=== PATIENT | female | born 1990 | race Caucasian/White ===

== ENCOUNTER 2016-04-10 09:42 | Inpatient (IN) | payer BC ==
[2016-04-10] MEDS ORDERED: OXYTOCIN 10 UNIT/ML 1 ML VIAL IM PRN (10:18)
[2016-04-10] MEDS ORDERED: TERBUTALINE 1 MG/ML VIAL SQ PRN (10:18)
[2016-04-10] MEDS ORDERED: METHYLERGONOVINE 0.2 MG/ML 1 ML AMP IM PRN (10:18)
[2016-04-10] MEDS ORDERED: LIDOCAINE 1% (PF) 10 MG/ML (30 ML SDV) SQ PRN (10:18)
[2016-04-10] MEDS ORDERED: CARBOPROST TROMETHAMINE 250 MCG/ML 1 ML AMP IM PRN (10:18)
[2016-04-10 10:24] LABS: Glucose,Whole Blood 81 mg/dL (75-99)
[2016-04-10] MEDS ORDERED: OXYTOCIN 30 UNITS/500 ML NS 30 UNIT in SALINE 1 500ML.BAG IV SCH (10:30)
[2016-04-10] MEDS: LACTATED RINGERS 1,000 ML IV SCH ×4 (10:39→23:34)
[2016-04-10 10:46] LABS: Anisocytosis Slight; Basophils % (A) 0 %; CH 29.4; CHCM 33.1; Eosinophils # (A) 0.1 k/uL (0-0.7); Eosinophils % (A) 1 %; HCT 40.7 % (34.0-46.0); HDW 2.39; HGB 13.2 gm/dL (11.4-16.0); Luc # (Auto) 0.25; Luc % (Auto) 2; Lymphocytes # (A) 2.1 k/uL (1.0-4.8); Lymphocytes % (A) 13 %; MCH 28.9 pg (25.0-35.0); MCHC 32.4 g/dL (31.0-37.0); MCV 89.3 fL (80.0-100.0); Mean Platelet Volume 7.7; Monocytes # (A) 0.7 k/uL (0-1.0); Monocytes % (A) 4 %; Neutrophils # (A) 13.6 k/uL (1.3-7.7); Neutrophils % (A) 81 %; RBC 4.56 m/uL (3.80-5.40); RDW 16.2 % (11.5-15.5); WBC 16.8 k/uL (3.8-10.6); WBC (Perox) 17.63
[2016-04-10 11:23] VITALS: BMI 38.3
[2016-04-10 12:26] LABS: Hemoglobin A1C 5.4 % (4.2-6.1)
[2016-04-10] MEDS ORDERED: BUPIVACAINE (PF) 0.25% 30 ML VIAL ONE (15:11)
[2016-04-10] MEDS ORDERED: SODIUM CHLORIDE 0.9% 100 ML BAG ONE (15:11)
[2016-04-10] MEDS ORDERED: fentaNYL (PF) 50 MCG/ML 5 ML AMP ONE (15:11)
--- NOTE | 2016-04-10 16:15 | P.HPOB ---
History of Present Illness H&P Date: 04/10/16 Chief Complaint: 40 and one sevenths weeks, gestational diabetes, oligohydramnios The patient is a 25-year-old 1 para 0 admitted at 40 and one sevenths weeks as established by a 6 week ultrasound. She is admitted from the office after having been found with oligohydramnios and an amniotic fluid index of 4.8 cm. She additionally carries a diagnosis of gestational diabetes with some good control using diet alone throughout the . testing has been reassuring throughout. Her has otherwise been essentially uncomplicated and group B strep status is negative. On labor and delivery, all signs reassuring. Obstetrical history 1 para 0 with current statistics listed in history of present illness. EDC of 04/09/2016 was established by a 6 week ultrasound. Laboratory workup demonstrates a blood type of O+ with a negative antibody screen. Rubella status is immune. All other laboratory workup was within normal limits. Thyroid functions demonstrated an abnormal TSH but a normal T4. Early Glucola was elevated and was followed by an abnormal three- hour glucose tolerance test making the diagnosis of gestational diabetes. Group B strep status is negative. Gynecologic history is unremarkable with no history of any infections to include STDs. Review of Systems Review of systems is confined to history of present illness. Past Medical History Past Medical History: Thyroid Disorder Additional Past Medical History / Comment(s): gestational diabetes History of Any Multi-Drug Resistant Organisms: None Reported Past Surgical History: No Surgical Hx Reported Additional Past Anesthesia/Blood Transfusion Reaction / Comment(s): Denies recieving a blood transfusion in the past Past Psychological History: No Psychological Hx Reported Smoking Status: Never smoker Past Alcohol Use History: None Reported Past Drug Use History: None Reported - Past Family History Mother Family Medical History: Thyroid Disorder Medications and Allergies Home Medications Medication Instructions Recorded Confirmed Type Levothyroxine Sodium [Synthroid] 175 mcg PO DAILY 09/25/15 04/10/16 History Allergies Allergy/AdvReac Type Severity Reaction Status Date / Time ibuprofen Allergy Unknown Verified 04/10/16 10:16 latex Allergy Unknown Verified 04/10/16 10:16 Penicillins Allergy Unknown Verified 04/10/16 10:16 Exam - Vital Signs Vital signs: Vital Signs Temp Pulse Resp BP 04/10/16 09:49 97.2 F L 98 17 137/88 Intake and Output 04/10/16 04/10/1604/10/17 06:59 14:59 22:59 Intake Total 1000 Balance 1000 Intake: IV 1000 Lactated Ringers 1,000 ml 1000 @ 125 mls/hr IV .Q8H [facility] Rx#:[id number] Other: # Voids 2 Weight 111.13 kg Patient Weight 04/11/16 06:59 Weight 111.13 kg In general, this is a well-developed, well-nourished white female in no acute distress. Her heart has a regular rhythm and rate without murmur. Her lungs are clear to auscultation bilaterally in all [place]. Her abdomen is gravid, nondistended, has normal active bowel sounds, is soft, nontender, and without any palpable masses aside from uterine fundus. Her extremities are without any cyanosis, clubbing, or significant edema and are nontender to palpation bilaterally. Digital cervical examination on straights her cervix to be approximately 1-2 cm dilated, 80% effaced, the vertex in presentation at -2 station. Artificial rupture of membranes is carried out demonstrate clear fluid. Results Result Diagrams: 04/10/16 10:25 Abnormal Lab Results - Last 24 Hours (Table) 04/10/16 Range/Units 10:25 WBC 16.8 H (3.8-10.6) k/uL RDW 16.2 H (11.5-15.5) % Neutrophils # 13.6 H (1.3-7.7) k/uL Assessment and Plan (1) Oligohydramnios Status: Acute (2) Gestational diabetes Status: Acute (3) Term Status: Acute Plan: The patient is admitted for induction of labor. She has had Pitocin augmentation started and undergone artificial rupture of membranes breech she will have close maternal and surveillance and expectant management will be practiced. She is a good candidate for either IV or epidural analgesia, whichever she may choose. Blood sugars will be monitored during labor as indicated.
[2016-04-10 16:16] LABS: Glucose,Whole Blood 84 mg/dL (75-99)
[2016-04-10 18:20] LABS: Glucose,Whole Blood 75 mg/dL (75-99)
[2016-04-10] MEDS ORDERED: NALOXONE 0.4 MG/ML 1 ML VIAL IV PRN ×2 (18:31→22:19)
[2016-04-10] MEDS ORDERED: METOCLOPRAMIDE 5 MG/ML 2 ML VIAL IVP PRN ×2 (18:31→22:15)
[2016-04-10] MEDS ORDERED: PROMETHAZINE INJ 6.25 MG in SODIUM CHLORIDE 0.9% 50 ML IVPB PRN (18:31)
[2016-04-10] MEDS ORDERED: ONDANSETRON 4 MG/2 ML VIAL IVP PRN (18:31)
[2016-04-10] MEDS ORDERED: diphenhydrAMINE 50 MG/ML 1 ML VIAL IVP PRN ×3 (18:31→22:15)
[2016-04-10] MEDS ORDERED: MORPHINE SULFATE 4 MG/ML SYRINGE IVP PRN (18:31)
[2016-04-10] MEDS ORDERED: NALBUPHINE 10 MG/ML AMPUL IV PRN (18:31)
[2016-04-10 21:19] LABS: Glucose,Whole Blood 96 mg/dL (75-99)
[2016-04-10] MEDS ORDERED: OXYTOCIN 10 UNIT/ML 1 ML VIAL IM ONE (21:22)
[2016-04-10] MEDS ORDERED: ONDANSETRON 4 MG/2 ML VIAL ONE (21:22)
[2016-04-10] MEDS ORDERED: LACTATED RINGERS 1,000 ML BAG IV ONE (21:22)
[2016-04-10] MEDS ORDERED: CLINDAMYCIN 150 MG/ML 4 ML VIAL ONE (21:22)
[2016-04-10] MEDS ORDERED: HYDROmorphone (PF) 1 MG/ML ONE (21:22)
[2016-04-10] MEDS ORDERED: fentaNYL (PF) 50 MCG/ML 2 ML AMP ONE (21:22)
[2016-04-10] MEDS ORDERED: diphenhydrAMINE 25 MG CAP PO PRN (22:15)
[2016-04-10] MEDS ORDERED: Acetaminophen-Codeine 300-30mg TAB PO PRN (22:15)
[2016-04-10] MEDS ORDERED: diphenhydrAMINE 50 MG CAP PO PRN (22:15)
[2016-04-10] MEDS ORDERED: ACETAMINOPHEN TAB 325 MG TAB PO PRN (22:15)
[2016-04-10] MEDS ORDERED: ZOLPIDEM 5 MG TAB PO PRN (22:15)
[2016-04-10] MEDS ORDERED: SIMETHICONE 80 MG CHEWABLE PO PRN (22:15)
[2016-04-10] MEDS ORDERED: LANOLIN CREAM 5 GM TUBE TOPICAL PRN (22:15)
[2016-04-10] MEDS ORDERED: HYDROmorphone PCA 5 MG/25 ML SYRINGE IV PRN (22:19)
[2016-04-10] MEDS ORDERED: DIPH,PERTUS(ACELL)TETVAC-LF 0.5 ML VIAL IM ONE (22:20)
--- NOTE | 2016-04-10 22:29 | P.OP ---
Date of Procedure: 04/10/16 Preoperative Diagnosis: #1. 40 and one sevenths weeks intrauterine #2. Gestational diabetes #3. Oligohydramnios #4. Arrest of descent in the second stage of labor Postoperative Diagnosis: Same plus #5. left occiput posterior position Procedure(s) Performed: #1. Primary low-transverse section Anesthesia: epidural Surgeon: Fernando Foster Hydraulic Lift Operator #1: Russell Mccarthy Estimated Blood Loss (ml): 600 IV fluids (ml): 950 Urine output (ml): 100 Pathology: other (Placenta) Condition: stable Disposition: floor Operative Findings: Preoperatively, the patient reached complete and began pushing for approximately 30-40 minutes with excellent maternal effort. The head was felt to have arrested behind the pubic symphysis and the pelvic architecture was felt to be somewhat contracted with a very narrow pubic arch. The patient was having significant discomfort and making no further descent of the head. The decision was made to present to the operating room for primary low- transverse section. At that time, she was delivered of a viable 8 lbs. 11 oz. baby boy with Apgars of 8 at 1 minute and 8 at 5 minutes delivered in the left occiput posterior position. Thick meconium-stained fluid was noted upon entering the uterine cavity. The infant was immediately vigorous. The placenta was delivered manually, intact, and grossly normal with a grossly normal three-vessel cord. The uterus, tubes, and ovaries were entirely normal to inspection. Description of Procedure: The patient was prepped and draped after the epidural catheter had been bolused by the anesthesiologist. Once analgesia was found to be adequate, a Pfannenstiel incision was made and extended into the abdominal cavity without difficulty. The bladder peritoneum was thought to be very distal to the site of the incision and was left intact. A 2 cm incision was made in the lower transverse uterine section at which time thick meconium-stained fluid was noted. The incision was extended in both directions using the bandage scissors. The head was found a deep within the maternal pelvis and was elevated up into the uterus and delivered in left occiput posterior position. The nose and mouth were thoroughly suctioned with bulb suction. The remainder of the infant was then delivered onto the field where the cord was doubly clamped, cut, and the passed for resuscitative measures with weight and Apgars as noted above. A segment of cord was doubly clamped, cut, and set aside should cord gases become necessary. The placenta was delivered manually and intact as noted above. The uterus was exteriorized and the interior cavity of the uterus swept of any remaining placental or membranous fragments. The margins of the incision were grasped with Díaz clamps and the uterus closed in 2 layers. The first layer was a running locking stitch of 0 chromic catgut followed by a running imbricating layer of 0 chromic catgut with several of the stitches locked to occlude venous spaces. Examination of the incision appeared to demonstrate excellent hemostasis. The posterior cul-de-sac was then suctioned using a guard and the uterine and ovarian findings were normal as noted above. The uterus was replaced within the abdominal cavity and the gutters swept of any remaining blood, fluid, or clot. The incision was reexamined and found to be hemostatic. The parietal peritoneum was loosely reapproximated and, as there was some pushing of abdominal contents through the incision unintentionally by the patient, the rectus muscles were loosely reapproximated with a [id number] stitch of 0 chromic catgut. The layer of muscles examined and made hemostatic with the Bovie. The fascia was then closed with 2 running stitches of 0 Vicryl proceeding from each margin to the midline. The subcutaneous tissues were irrigated, made hemostatic with the Bovie, and reapproximated with a running stitch of 3-0 plain catgut. The skin was reapproximated with a running subcuticular stitch of 4-0 Vicryl followed by half-inch Steri-Strips placed with Mastisol. Estimated blood loss for the case was approximate 600 mL. There were no complications. All sponge, instrument, and needle counts were correct. Both mother and infant are resting comfortably in recovery.
[2016-04-10] MEDS: KETOROLAC 30 MG/ML 1 ML VIAL IVP PRN (23:34)
[2016-04-11] MEDS: OXYTOCIN 30 UNITS/500 ML NS 30 UNIT in SALINE 1 500ML.BAG IV SCH ×3 (00:49→07:18)
[2016-04-11] MEDS: KETOROLAC 30 MG/ML 1 ML VIAL IVP PRN (05:48)
[2016-04-11] MEDS: SENNOSIDES-DOCUSATE SODIUM 1 EACH TAB PO SCH ×2 (07:55→21:36)
[2016-04-11 08:06] LABS: Anisocytosis Slight; Basophils % (A) 0 %; CH 29.6; CHCM 32.9; Eosinophils % (A) 0 %; HCT 33.4 % (34.0-46.0); HDW 2.41; HGB 10.5 gm/dL (11.4-16.0); Luc # (Auto) 0.15; Luc % (Auto) 1; Lymphocytes # (A) 1.2 k/uL (1.0-4.8); Lymphocytes % (A) 7 %; MCH 28.7 pg (25.0-35.0); MCHC 31.6 g/dL (31.0-37.0); MCV 90.7 fL (80.0-100.0); Mean Platelet Volume 7.9; Monocytes # (A) 0.8 k/uL (0-1.0); Monocytes % (A) 5 %; Neutrophils # (A) 14.5 k/uL (1.3-7.7); Neutrophils % (A) 87 %; RBC 3.68 m/uL (3.80-5.40); RDW 16.5 % (11.5-15.5); WBC 16.6 k/uL (3.8-10.6); WBC (Perox) 17.47
--- NOTE | 2016-04-11 10:02 | P.PNOBGPC ---
Subjective - Subjective Interval history: The patient reports "I feel sore." Patient reports: Reports appetite normal, Reports voiding normally, Reports pain well controlled, Reports ambulating normally [place]: doing well Objective - Vital Signs Latest vital signs: Vital Signs Temp Pulse Resp BP BP Pulse Ox 04/11/16 07:51 98.6 F 95 16 97/57 04/11/16 04:00 98.8 F 92 16 125/57 96 04/11/16 00:13 96.7 F L 88 16 106/60 96 04/10/16 23:43 96.7 F L 108 H 16 115/69 96 04/10/16 23:13 96.8 F L 103 H 16 106/56 99 04/10/16 22:58 77 16 106/56 98 04/10/16 22:43 97.9 F 79 16 117/69 96 04/10/16 22:28 84 16 111/64 96 04/10/16 22:19 96 04/10/16 22:13 97.7 F 109 H 18 120/70 Intake and Output 04/10/16 04/11/16 04/11/16 22:59 06:59 14:59 Intake Total 1050 1550 Output Total 500 900 Balance 550 650 Intake: IV 1000 950 Invasive Line 1 1000 Lactated Ringers 1,000 ml 950 @ 125 mls/hr IV .Q8H [facility] Rx#:[id number] Oral 50 600 Output: Urine 500 300 Straight 500 100 Estimated Blood Loss 600 Other: Voiding Method Indwelling Catheter Indwelling Catheter - Exam Lungs: bilateral: normal Chest: Normal S1, Normal S2 Extremities: Present: normal Abdomen: Present: normal appearance, soft. Absent: distention, tenderness Incision: Present: normal, dry, intact Uterus: Present: normal, firm (The uterine fundus as tonic and nontender just below the umbilicus.) - Labs Labs: Abnormal Lab Results - Last 24 Hours (Table) 04/10/16 04/11/16 Range/Units 10:25 07:40 WBC 16.8 H 16.6 H (3.8-10.6) k/uL RBC 3.68 L (3.80-5.40) m/uL Hgb 10.5 L (11.4-16.0) gm/dL Hct 33.4 L (34.0-46.0) % RDW 16.2 H 16.5 H (11.5-15.5) % Neutrophils # 13.6 H 14.5 H (1.3-7.7) k/uL Assessment and Plan (1) Oligohydramnios Current Visit: Yes Status: Acute Code(s): O41.00X0 - OLIGOHYDRAMNIOS, UNSP TRIMESTER, NOT APPLICABLE OR UNSP SNOMED Code(s): 73754437 (2) Gestational diabetes Current Visit: Yes Status: Acute Code(s): O24.419 - GESTATIONAL DIABETES MELLITUS IN , UNSP CONTROL SNOMED Code(s): 16037662 (3) Term Current Visit: Yes Status: Acute Code(s): Z34.80 - ENCOUNTER FOR SUPRVSN OF NORMAL , UNSP TRIMESTER SNOMED Code(s): 89954677 (4) S/P section Narrative/Plan: Continue routine postoperative care. The ACCOUNTANT CERTIFIED PUBLIC will be discontinued and her IV will be capped. I have encouraged her to ambulate in the halls at least 4 times daily. I will be advanced to regular with lunch. She is possible candidate for discharge home tomorrow pending no complications. Current Visit: Yes Status: Acute Code(s): Z98.891 - HISTORY OF UTERINE SCAR FROM PREVIOUS SURGERY SNOMED Code(s): 174040597
[2016-04-11] MEDS: Acetaminophen-Codeine 300-30mg TAB PO PRN ×3 (12:06→21:35)
--- NOTE | 2016-04-12 07:46 | P.DS ---
Providers Date of admission: 04/10/16 09:42 Expected date of discharge: 04/12/16 Attending physician: Fernando Foster - Discharge Diagnosis(es) (1) Arrest of descent, delivered, current hospitalization Current Visit: Yes Status: Acute (2) malposition, delivered, current hospitalization Current Visit: Yes Status: Acute (3) Gestational diabetes Current Visit: Yes Status: Acute (4) Oligohydramnios Current Visit: Yes Status: Acute (5) S/P section Current Visit: Yes Status: Acute (6) Term Current Visit: Yes Status: Acute Hospital Course: This is a 25 year old 1 now para 1 woman who was admitted at 40 and one sevenths weeks gestation to labor and delivery for induction of labor secondary to gestational diabetes and oligohydramnios. Despite induction of labor she had arrest of descent and dilatation and underwent a primary low transverse section. Findings at the time of surgery were significant for occiput posterior position and weighing 8 lbs. 11 oz. with Apgars of 8 at 1 minute and 8 at 5 minutes. There was meconium-stained fluid. Please see the operative report for complete details. The patient's postoperative course was unremarkable. By postoperative day #1 she was ambulating and voiding with her Winston catheter out. She was tolerating a general diet and her pain was well controlled. By postoperative day #2 she continued to do well. Her vital signs were stable. Her incision appeared to be well healing without evidence of erythema or breakdown. She had minimal lochia. She is breast-feeding successfully. She was therefore discharged home on postoperative day #2 with routine instructions for postoperative care and follow-up. Patient Condition at Discharge: Good Plan - Discharge Summary New Discharge Prescriptions: Acetaminophen-Codeine 300-30mg [Tylenol w/codeine #3] 2 each PO Q4HR PRN #30 tab PRN Reason: Moderate To Severe Pain Discharge Medication List Levothyroxine Sodium [Synthroid] 175 mcg PO DAILY 09/25/15 [History] Acetaminophen-Codeine 300-30mg [Tylenol w/codeine #3] 2 each PO Q4HR PRN #30 tab 04/12/16 [Rx] Follow up Appointment(s)/Referral(s): Nupur Doty MD [STAFF PHYSICIAN] - 2 Weeks Activity/Diet/Wound Care/Special Instructions: Follow-up in 2 weeks after surgery in the office. Call the office with any concerning signs or symptoms including fever greater than 101, severe abdominal pain, heavy vaginal bleeding, signs of wound infection, increased swelling or redness of the lower extremities, signs of depression. No driving for 2 weeks after surgery. No heavy lifting or vigorous activity until reevaluated in the office. No intercourse for 6 weeks after delivery. Discharge Disposition: HOME SELF-CARE
[2016-04-12] MEDS: SENNOSIDES-DOCUSATE SODIUM 1 EACH TAB PO SCH ×2 (08:50→21:44)
[2016-04-12] MEDS: Acetaminophen-Codeine 300-30mg TAB PO PRN ×2 (08:50→18:29)
[2016-04-12 16:19] VITALS: RESP 16
[2016-04-12] MEDS: LACTATED RINGERS 1,000 ML IV SCH (20:29)
[2016-04-13] MEDS: Acetaminophen-Codeine 300-30mg TAB PO PRN (03:29)
[2016-04-13] MEDS: SENNOSIDES-DOCUSATE SODIUM 1 EACH TAB PO SCH (08:21)
[2016-04-13 08:41] VITALS: BP 127/69; PULSE 91; TEMP 98.1
--- NOTE | 2016-04-13 11:00 | P.PNOBGPC ---
Subjective - Subjective Principal diagnosis: Postop day 2 Patient reports: Reports appetite normal, Reports voiding normally, Reports pain poorly controlled (Complaining of worsening pain with oral pain medications throughout the night.) [place]: doing well Objective - Vital Signs Latest vital signs: Vital Signs Temp Pulse Resp BP BP Pulse Ox 04/13/16 08:00 98.1 F 91 16 127/69 98 04/13/16 00:00 98.5 F 102 H 16 137/92 04/12/16 16:00 98.5 F 97 16 117/66 - Exam Extremities: Present: normal, edema Abdomen: Present: normal appearance, soft. Absent: tenderness Incision: Present: normal, dry, intact Uterus: Present: normal, firm. Absent: tenderness Assessment and Plan (1) Arrest of descent, delivered, current hospitalization Current Visit: Yes Status: Acute Code(s): O62.1 - SECONDARY UTERINE INERTIA SNOMED Code(s): 82768672 (2) malposition, delivered, current hospitalization Current Visit: Yes Status: Acute Code(s): O32.8XX0 - MATERNAL CARE FOR OTH MALPRESENTATION OF FETUS, UNSP SNOMED Code(s): 769920301 (3) Gestational diabetes Current Visit: Yes Status: Acute Code(s): O24.419 - GESTATIONAL DIABETES MELLITUS IN , UNSP CONTROL SNOMED Code(s): 60369031 (4) Oligohydramnios Current Visit: Yes Status: Acute Code(s): O41.00X0 - OLIGOHYDRAMNIOS, UNSP TRIMESTER, NOT APPLICABLE OR UNSP SNOMED Code(s): 91865934 (5) S/P section Narrative/Plan: Postop day 2 status post repeat low transverse section and bilateral tubal ligation. She is recovering well however she has inadequate pain control. We again discussed timing of pain medications with alternating ibuprofen and Tylenol with Codeine. Her clinical exam is benign. Anticipate discharge home tomorrow. Current Visit: Yes Status: Acute Code(s): Z98.891 - HISTORY OF UTERINE SCAR FROM PREVIOUS SURGERY SNOMED Code(s): 705703466 (6) Term Current Visit: Yes Status: Acute Code(s): Z34.80 - ENCOUNTER FOR SUPRVSN OF NORMAL , UNSP TRIMESTER SNOMED Code(s): 04239053
== END 2016-04-13 11:45 | disposition home or self-care (01) | DRG 766 ==
LOC: 4FBP 09:42
PROVIDERS: ADMIT Obstetrics & Gynecology; ATTEND Obstetrics & Gynecology
PROC: 3E033VJ Introduction of Other Hormone into Peripheral Vein, Percutaneous Approach (ICD-10-PCS; 2016-04-10)
PROC: 10907ZC Drainage of Amniotic Fluid, Therapeutic from Products of Conception, Via Natural or Artificial Opening (ICD-10-PCS; 2016-04-10)
PROC: 3E0S3NZ Introduction of Analgesics, Hypnotics, Sedatives into Epidural Space, Percutaneous Approach (ICD-10-PCS; 2016-04-10)
PROC: 10D00Z1 Extraction of Products of Conception, Low, Open Approach (ICD-10-PCS; principal; 2016-04-10 21:15)
DX: O41.03X0 Oligohydramnios, third trimester, not applicable or unspecified (principal); O24.420 Gestational diabetes mellitus in childbirth, diet controlled; E07.9 Disorder of thyroid, unspecified; O62.1 Secondary uterine inertia; O48.0 Post-term pregnancy; O99.284 Endocrine, nutritional and metabolic diseases complicating childbirth; O65.1 Obstructed labor due to generally contracted pelvis; R94.6 Abnormal results of thyroid function studies; O77.0 Labor and delivery complicated by meconium in amniotic fluid; Z37.0 Single live birth; Z3A.40 40 weeks gestation of pregnancy; Z83.49 Family history of other endocrine, nutritional and metabolic diseases; Z79.899 Other long term (current) drug therapy; Z88.0 Allergy status to penicillin; Z88.6 Allergy status to analgesic agent; Z91.040 Latex allergy status
CPT/HCPCS: 83036; 85025; 88307

== ENCOUNTER 2016-08-29 22:47 | Emergency (ER) | payer BC ==
[2016-08-29 23:11] VITALS: TEMP 98.2
--- NOTE | 2016-08-29 23:26 | ED ---
Psych HPI - General Chief Complaint: Psychiatric Symptoms Stated Complaint: Mental Health Time Seen by Provider: 08/29/16 23:12 Source: patient, family, RN notes reviewed Mode of arrival: ambulatory Limitations: no limitations - History of Present Illness Initial Comments: This a 25-year-old female presents emergency department for psychiatric evaluation. Patient states she is very depressed and very anxious. She states that she's been going to counseling but states is not helping. She is not on any medication at this time. She states she was admitted when she was younger and states that she feels exactly the same way. She states that the anxiety never stops and causes her to feel suicidal. She states she that she's had thoughts and will let her sit about this. She states that she reached out for help from a restaurant the day. Patient states that she cannot tolerate this anymore. Denies any alcohol or drug abuse. Denies any physical complaints. - Related Data Home Medications Medication Instructions Recorded Confirmed Levothyroxine Sodium [Synthroid] 175 mcg PO DAILY 09/25/15 08/29/16 Allergies Allergy/AdvReac Type Severity Reaction Status Date / Time latex Allergy Rash/Hives Verified 08/29/16 23:19 Penicillins Allergy Rash/Hives Verified 08/29/16 23:19 ibuprofen AdvReac Nausea Verified 08/29/16 23:19 Review of Systems ROS Statement: Those systems with pertinent positive or pertinent negative responses have been documented in the HPI. ROS Other: All systems not noted in ROS Statement are negative. Past Medical History Past Medical History: Thyroid Disorder Additional Past Medical History / Comment(s): gestational diabetes, depression History of Any Multi-Drug Resistant Organisms: None Reported Past Surgical History: No Surgical Hx Reported Additional Past Anesthesia/Blood Transfusion Reaction / Comment(s): Denies recieving a blood transfusion in the past Past Psychological History: Anxiety, Depression Smoking Status: Never smoker Past Alcohol Use History: None Reported Past Drug Use History: None Reported - Past Family History Mother Family Medical History: Thyroid Disorder General Exam Limitations: no limitations General appearance: alert, in no apparent distress Head exam: Present: atraumatic, normocephalic, normal inspection Eye exam: Present: normal appearance, PERRL, EOMI. Absent: scleral icterus, conjunctival injection, periorbital swelling ENT exam: Present: normal exam, normal oropharynx, mucous membranes moist Neck exam: Present: normal inspection, full ROM. Absent: tenderness, meningismus, lymphadenopathy Respiratory exam: Present: normal lung sounds bilaterally. Absent: respiratory distress, wheezes, rales, rhonchi, stridor Cardiovascular Exam: Present: regular rate, normal rhythm, normal heart sounds. Absent: systolic murmur, diastolic murmur, rubs, gallop, clicks GI/Abdominal exam: Present: soft, normal bowel sounds. Absent: distended, tenderness, guarding, rebound, rigid Neurological exam: Present: alert, oriented X3, CN II-XII intact Skin exam: Present: warm, dry, intact, normal color. Absent: rash Course Vital Signs 08/29/16 23:07 Temperature 98.2 F Pulse Rate 66 Respiratory 18 Rate Blood Pressure 138/92 O2 Sat by Pulse 100 Oximetry Medical Decision Making - Medical Decision Making Patient was evaluated by EPS. Patient's case discussed with psychiatrist she does not meet inpatient criteria. Patient is lacking the room is not suicidal at this time. Patient will follow up outpatient return parameters were discussed. Patient has a safety plan for at home. - Lab Data Lab Results 08/29/16 Range/Units 23:08 Urine Opiates Screen Detected H (NotDetected) Ur Oxycodone Screen Not Detected (NotDetected) Urine Methadone Screen Not Detected (NotDetected) Ur Propoxyphene Screen Not Detected (NotDetected) Ur Barbiturates Screen Not Detected (NotDetected) U Tricyclic Antidepress Not Detected (NotDetected) Ur Phencyclidine Scrn Not Detected (NotDetected) Ur Amphetamines Screen Not Detected (NotDetected) U Methamphetamines Scrn Not Detected (NotDetected) U Benzodiazepines Scrn Not Detected (NotDetected) Urine Cocaine Screen Not Detected (NotDetected) U Marijuana (THC) Screen Not Detected (NotDetected) Disposition Clinical Impression: Depression, Acute anxiety Disposition: HOME SELF-CARE Condition: Stable Instructions: Depression (ED) Additional Instructions: Please return to the Emergency Department if symptoms worsen or any other concerns. Referrals: Hudson Wang MD [Primary Care Provider] - 1-2 days Time of Disposition: 00:53
[2016-08-30 02:21] VITALS: BP 123/76; PULSE 82; RESP 16
== END 2016-08-30 02:01 | disposition home or self-care (01) ==
LOC: EC 22:47
DX: F32.9 Major depressive disorder, single episode, unspecified (principal); F41.9 Anxiety disorder, unspecified; E07.9 Disorder of thyroid, unspecified; Z79.899 Other long term (current) drug therapy; Z88.0 Allergy status to penicillin; Z88.6 Allergy status to analgesic agent; Z91.040 Latex allergy status
CPT/HCPCS: 80306; 82075; 99284

== ENCOUNTER 2018-11-27 15:54 | Emergency (ER) | payer BC, OTHER ==
[2018-11-27 16:08] VITALS: PULSE 76; RESP 16; TEMP 98
[2018-11-27] MEDS ORDERED: SODIUM CHLORIDE 0.9% 2,000 ML IV STA (16:18)
[2018-11-27 16:43] LABS: Basophils % (A) 0 %; Eosinophils # (A) 0.1 k/uL (0-0.7); Eosinophils % (A) 1 %; HCT 44.7 % (34.0-46.0); HGB 14.9 gm/dL (11.4-16.0); Lymphocytes % (A) 20 %; MCH 30.1 pg (25.0-35.0); MCHC 33.4 g/dL (31.0-37.0); MCV 90.2 fL (80.0-100.0); Mean Platelet Volume 6.8; Monocytes # (A) 0.4 k/uL (0-1.0); Monocytes % (A) 4 %; Neutrophils # (A) 7.4 k/uL (1.3-7.7); Neutrophils % (A) 74 %; Platelet Count 373 k/uL (150-450); RBC 4.96 m/uL (3.80-5.40); RDW 14.4 % (11.5-15.5)
[2018-11-27 16:56] LABS: ALT 25 U/L (9-52); AST 30 U/L (14-36); Acetaminophen <10.0 ug/mL; African American GFR (CKD) 82 (>60 ml/min/1.73 sqM); Albumin 5.1 g/dL (3.5-5.0); Alcohol <10 mg/dL; Alkaline Phosphatase 67 U/L (38-126); Anion Gap 12 mmol/L; Blood Urea Nitrogen 17 mg/dL (7-17); Carbon Dioxide 26 mmol/L (22-30); Chloride 104 mmol/L (98-107); Glucose 106 mg/dL (74-99); Non-African American GFR(CKD) 71 (>60 ml/min/1.73 sqM); Potassium 3.7 mmol/L (3.5-5.1); Salicylate <1.0 mg/dL; Sodium 142 mmol/L (137-145); Total Bilirubin 0.4 mg/dL (0.2-1.3); Total Protein 8.3 g/dL (6.3-8.2)
[2018-11-27 17:00] LABS: Appearance,Urine Clear (Clear); Bilirubin,Urine Negative (Negative); Blood,Urine Negative (Negative); Color,Urine Light Yellow; Glucose,Urine (UA) Negative (Negative); Ketones,Urine Negative (Negative); Leukocyte Esterase,Urine Negative (Negative); Nitrite,Urine Negative (Negative); Protein,Urine Negative (Negative); Specific Gravity,Urine 1.004 (1.001-1.035); Urobilinogen,Urine <2.0 mg/dL (<2.0)
[2018-11-27 17:11] LABS: Amphetamine Screen,Urine Not Detected (NotDetected); Barbiturate Screen,Urine Not Detected (NotDetected); Benzodiazepines Screen,Urine Not Detected (NotDetected); Cocaine Screen,Urine Not Detected (NotDetected); Methadone Screen, Urine Not Detected (NotDetected); Opiate Screen,Urine Not Detected (NotDetected); Oxycodone Screen, Urine Not Detected (NotDetected); Phencyclidine Screen,Urine Not Detected (NotDetected); Tricyclic Antidepressant,Urine Not Detected (NotDetected); Urn Cannabinoid Scrn Not Detected (NotDetected)
--- NOTE | 2018-11-27 18:17 | ED ---
Overdose HPI - General Chief Complaint: Overdose Stated Complaint: overdose Time Seen by Provider: 11/27/18 16:11 Source: patient, EMS, RN notes reviewed Mode of arrival: EMS Limitations: no limitations - History of Present Illness Initial Comments: 28-year-old female presents emergency Department chief complaint of overdose. Patient states that approximate hour to hour and half prior arrival she took a bunch of pills which included Lamictal and Effexor. Patient states she's not exactly sure how many pills she took. Patient is currently vomiting. Patient states her stomach is upset denies any chest pain palpitations headache, dizziness, blurred vision. Patient states that she is suicidal, depressed just feels loss and hopeless. Patient denies homicidal ideation. Patient has attempted to harm herself in the past. Patient has long history of psychiatric disorders. - Related Data Home Medications Medication Instructions Recorded Confirmed Melatonin 5 mg PO HS PRN 11/27/18 11/27/18 Norgestimate-Ethinyl Estradiol 1 tab PO DAILY 11/27/18 11/27/18 [Sprintec 28 Day Tablet] Venlafaxine HCl [Effexor XR] 225 mg PO DAILY 11/27/18 11/27/18 lamoTRIgine [LaMICtal] 100 mg PO DAILY@2100 11/27/18 11/27/18 Previous Rx's Medication Instructions Recorded Levothyroxine Sodium [Synthroid] 125 mcg PO DAILY@0630 30 Days #30 06/28/18 tab Allergies Allergy/AdvReac Type Severity Reaction Status Date / Time latex Allergy Rash/Hives Verified 11/27/18 16:22 Penicillins Allergy Rash/Hives Verified 11/27/18 16:22 ibuprofen AdvReac Nausea Verified 11/27/18 16:22 Review of Systems ROS Statement: Those systems with pertinent positive or pertinent negative responses have been documented in the HPI. ROS Other: All systems not noted in ROS Statement are negative. Past Medical History Past Medical History: Thyroid Disorder Additional Past Medical History / Comment(s): gestational diabetes, depression History of Any Multi-Drug Resistant Organisms: None Reported Past Surgical History: Section Past Anesthesia/Blood Transfusion Reactions: No Reported Reaction Additional Past Anesthesia/Blood Transfusion Reaction / Comment(s): Denies recieving a blood transfusion in the past Past Psychological History: Anxiety, Depression Smoking Status: Never smoker Past Alcohol Use History: Rare Past Drug Use History: Marijuana - Past Family History Mother Family Medical History: Thyroid Disorder Father History Unknown: Yes Son(s) Family Medical History: No Reported History General Exam Limitations: no limitations General appearance: alert, in no apparent distress Head exam: Present: atraumatic, normocephalic, normal inspection Eye exam: Present: normal appearance, PERRL, EOMI. Absent: scleral icterus, conjunctival injection, periorbital swelling ENT exam: Present: normal exam, normal oropharynx, mucous membranes moist Neck exam: Present: normal inspection, full ROM. Absent: tenderness, meningismus, lymphadenopathy Respiratory exam: Present: normal lung sounds bilaterally. Absent: respiratory distress, wheezes, rales, rhonchi, stridor Cardiovascular Exam: Present: regular rate, normal rhythm, normal heart sounds. Absent: systolic murmur, diastolic murmur, rubs, gallop, clicks GI/Abdominal exam: Present: soft, normal bowel sounds. Absent: distended, tenderness, guarding, rebound, rigid Neurological exam: Present: alert, oriented X3, CN II-XII intact Psychiatric exam: Present: depressed Skin exam: Present: warm, dry, intact, normal color. Absent: rash Course Vital Signs 11/27/18 11/27/18 15:59 18:53 Temperature 98.0 F 98.0 F Pulse Rate 76 76 Respiratory 16 16 Rate Blood Pressure 129/79 120/82 O2 Sat by Pulse 99 98 Oximetry - Reevaluation(s) Reevaluation #1: 11/27/18 18:54 Poison control was contacted and no recommendations Medical Decision Making - Medical Decision Making 28-year-old female presented for possible overdose. Patient was evaluated by EPS patient admitted that she did not take her medications. Patient states she has: Personality disorder states that she had a fight with her significant other that she is trying to seek attention. Patient case discussed with psychiatrist who recommends the patient be discharged. - Lab Data Result diagrams: 11/27/18 16:33 11/27/18 16:33 Lab Results 11/27/18 11/27/18 11/27/18 Range/Units 16:33 16:33 16:42 WBC 10.0 (3.8-10.6) k/uL RBC 4.96 (3.80-5.40) m/uL Hgb 14.9 (11.4-16.0) gm/dL Hct 44.7 (34.0-46.0) % MCV 90.2 (80.0-100.0) fL MCH 30.1 (25.0-35.0) pg MCHC 33.4 (31.0-37.0) g/dL RDW 14.4 (11.5-15.5) % Plt Count 373 (150-450) k/uL Neutrophils % 74 % Lymphocytes % 20 % Monocytes % 4 % Eosinophils % 1 % Basophils % 0 % Neutrophils # 7.4 (1.3-7.7) k/uL Lymphocytes # 2.0 (1.0-4.8) k/uL Monocytes # 0.4 (0-1.0) k/uL Eosinophils # 0.1 (0-0.7) k/uL Basophils # 0.0 (0-0.2) k/uL Sodium 142 (137-145) mmol/L Potassium 3.7 (3.5-5.1) mmol/L Chloride 104 (98-107) mmol/L Carbon Dioxide 26 (22-30) mmol/L Anion Gap 12 mmol/L BUN 17 (7-17) mg/dL Creatinine 1.06 H (0.52-1.04) mg/dL Est GFR (CKD-EPI)AfAm 82 (>60 ml/min/1.73 sqM) Est GFR (CKD-EPI)NonAf 71 (>60 ml/min/1.73 sqM) Glucose 106 H (74-99) mg/dL Calcium 10.0 (8.4-10.2) mg/dL Total Bilirubin 0.4 (0.2-1.3) mg/dL AST 30 (14-36) U/L ALT 25 (9-52) U/L Alkaline Phosphatase 67 (38-126) U/L Total Protein 8.3 H (6.3-8.2) g/dL Albumin 5.1 H (3.5-5.0) g/dL Lipase 170 (23-300) U/L Urine Color Light Yellow Urine Appearance Clear (Clear) Urine pH 6.0 (5.0-8.0) Ur Specific [place] 1.004 (1.001-1.035) Urine Protein Negative (Negative) Urine Glucose (UA) Negative (Negative) Urine Ketones Negative (Negative) Urine Blood Negative (Negative) Urine Nitrite Negative (Negative) Urine Bilirubin Negative (Negative) Urine Urobilinogen <2.0 (<2.0) mg/dL Ur Leukocyte Esterase Negative (Negative) Urine HCG, Qual (Not Detectd) Salicylates <1.0 mg/dL Urine Opiates Screen Not Detected (NotDetected) Ur Oxycodone Screen Not Detected (NotDetected) Urine Methadone Screen Not Detected (NotDetected) Ur Propoxyphene Screen Not Detected (NotDetected) Acetaminophen <10.0 ug/mL Ur Barbiturates Screen Not Detected (NotDetected) U Tricyclic Antidepress Not Detected (NotDetected) Ur Phencyclidine Scrn Not Detected (NotDetected) Ur Amphetamines Screen Not Detected (NotDetected) U Methamphetamines Scrn Not Detected (NotDetected) U Benzodiazepines Scrn Not Detected (NotDetected) Urine Cocaine Screen Not Detected (NotDetected) U Marijuana (THC) Screen Not Detected (NotDetected) Serum Alcohol <10 mg/dL 11/27/18 Range/Units 16:42 WBC (3.8-10.6) k/uL RBC (3.80-5.40) m/uL Hgb (11.4-16.0) gm/dL Hct (34.0-46.0) % MCV (80.0-100.0) fL MCH (25.0-35.0) pg MCHC (31.0-37.0) g/dL RDW (11.5-15.5) % Plt Count (150-450) k/uL Neutrophils % % Lymphocytes % % Monocytes % % Eosinophils % % Basophils % % Neutrophils # (1.3-7.7) k/uL Lymphocytes # (1.0-4.8) k/uL Monocytes # (0-1.0) k/uL Eosinophils # (0-0.7) k/uL Basophils # (0-0.2) k/uL Sodium (137-145) mmol/L Potassium (3.5-5.1) mmol/L Chloride (98-107) mmol/L Carbon Dioxide (22-30) mmol/L Anion Gap mmol/L BUN (7-17) mg/dL Creatinine (0.52-1.04) mg/dL Est GFR (CKD-EPI)AfAm (>60 ml/min/1.73 sqM) Est GFR (CKD-EPI)NonAf (>60 ml/min/1.73 sqM) Glucose (74-99) mg/dL Calcium (8.4-10.2) mg/dL Total Bilirubin (0.2-1.3) mg/dL AST (14-36) U/L ALT (9-52) U/L Alkaline Phosphatase (38-126) U/L Total Protein (6.3-8.2) g/dL Albumin (3.5-5.0) g/dL Lipase (23-300) U/L Urine Color Urine Appearance (Clear) Urine pH (5.0-8.0) Ur Specific [place] (1.001-1.035) Urine Protein (Negative) Urine Glucose (UA) (Negative) Urine Ketones (Negative) Urine Blood (Negative) Urine Nitrite (Negative) Urine Bilirubin (Negative) Urine Urobilinogen (<2.0) mg/dL Ur Leukocyte Esterase (Negative) Urine HCG, Qual Not Detected (Not Detectd) Salicylates mg/dL Urine Opiates Screen (NotDetected) Ur Oxycodone Screen (NotDetected) Urine Methadone Screen (NotDetected) Ur Propoxyphene Screen (NotDetected) Acetaminophen ug/mL Ur Barbiturates Screen (NotDetected) U Tricyclic Antidepress (NotDetected) Ur Phencyclidine Scrn (NotDetected) Ur Amphetamines Screen (NotDetected) U Methamphetamines Scrn (NotDetected) U Benzodiazepines Scrn (NotDetected) Urine Cocaine Screen (NotDetected) U Marijuana (THC) Screen (NotDetected) Serum Alcohol mg/dL - EKG Data EKG Comments: EKG performed at 16:41 normal sinus rhythm rate of 85 RI 154 QRS 106 QT/QTC 398/473 Disposition Clinical Impression: Depression Disposition: HOME SELF-CARE Condition: Stable Instructions (If sedation given, give patient instructions): Depression (ED) Additional Instructions: Please return to the Emergency Department if symptoms worsen or any other concerns. Is patient prescribed a controlled substance at d/c from ED?: No Referrals: Hudson Wang MD [Primary Care Provider] - 1-2 days Time of Disposition: 19:04
[2018-11-27 18:54] VITALS: BP 120/82
== END 2018-11-27 19:16 | disposition home or self-care (01) ==
LOC: EC 15:54
DX: F32.9 Major depressive disorder, single episode, unspecified (principal); T42.6X2A Poisoning by other antiepileptic and sedative-hypnotic drugs, intentional self-harm, initial encounter; F41.9 Anxiety disorder, unspecified; Z79.3 Long term (current) use of hormonal contraceptives; Z79.899 Other long term (current) drug therapy; Z91.040 Latex allergy status; Z88.0 Allergy status to penicillin; Z88.6 Allergy status to analgesic agent
CPT/HCPCS: 36415; 80053; 80175; 80306; 80320; 80329; 81003; 81025; 82075; 83520; 83690; 85025; 93005; 96360; 99285

== ENCOUNTER 2019-03-21 15:09 | Emergency (ER) | payer BC, OTHER ==
[2019-03-21 15:14] VITALS: RESP 18; TEMP 98.3
--- NOTE | 2019-03-21 15:36 | ED ---
Female Urogenital HPI - General Source: patient Mode of arrival: ambulatory Limitations: no limitations <Lorna Hilario - Last Filed: 03/21/19 17:36> <FerblayneTeri Peter - Last Filed: 03/22/19 23:24> - General Chief complaint: Urogenital Stated complaint: Vaginal Bleeding- Time Seen by Provider: 03/21/19 15:16 - History of Present Illness Initial comments: 28yo female with LMP estimated mid january with known irregular periods presenting to the ER for cc of bleeding in . Patient states she had positive test last week. She states that yesterday she developed cramping of the lower back., that felt identical to when she has periods or "back labor" low directly behind the pelvic region. Denies flank pain, fever, dysuria, urgency, frequency. She states she thought nothing of it because she is usually on her feet for long periods of time. She states that today she developed bleeding that was mild-moderate no clotting noted that began approximately 45 minutes prior to arrival. Patient states that she has no anterior abdominal or pelvic pain. Patient denies and unilateral pelvic pain or history of ectopic . History of bleeding during last . Patient denies any other complaints. (Lorna Hilario) - Related Data Home Medications Medication Instructions Recorded Confirmed Melatonin 5 mg PO HS PRN 11/27/18 11/27/18 Norgestimate-Ethinyl Estradiol 1 tab PO DAILY 11/27/18 11/27/18 [Sprintec 28 Day Tablet] Venlafaxine HCl [Effexor XR] 225 mg PO DAILY 11/27/18 11/27/18 lamoTRIgine [LaMICtal] 100 mg PO DAILY@2100 11/27/18 11/27/18 Previous Rx's Medication Instructions Recorded Levothyroxine Sodium [Synthroid] 125 mcg PO DAILY@0630 30 Days #30 06/28/18 tab Cephalexin [Keflex] 500 mg PO Q12HR 7 Days #14 cap 03/21/19 Allergies Allergy/AdvReac Type Severity Reaction Status Date / Time latex Allergy Rash/Hives Verified 11/27/18 16:22 Penicillins Allergy Rash/Hives Verified 11/27/18 16:22 ibuprofen AdvReac Nausea Verified 11/27/18 16:22 Review of Systems ROS Other: All systems not noted in ROS Statement are negative. <Lorna Hilario - Last Filed: 03/21/19 17:36> ROS Other: All systems not noted in ROS Statement are negative. <Teri Coreas - Last Filed: 03/22/19 23:24> ROS Statement: Those systems with pertinent positive or pertinent negative responses have been documented in the HPI. Past Medical History Past Medical History: Thyroid Disorder Additional Past Medical History / Comment(s): gestational diabetes, depression History of Any Multi-Drug Resistant Organisms: None Reported Past Surgical History: Section Past Anesthesia/Blood Transfusion Reactions: No Reported Reaction Additional Past Anesthesia/Blood Transfusion Reaction / Comment(s): Denies recieving a blood transfusion in the past Past Psychological History: Anxiety, Depression Smoking Status: Never smoker Past Alcohol Use History: Rare Past Drug Use History: Marijuana - Past Family History Mother Family Medical History: Thyroid Disorder Father History Unknown: Yes Son(s) Family Medical History: No Reported History <Lorna Hilario - Last Filed: 03/21/19 17:36> General Exam Limitations: no limitations <Lorna Hilario - Last Filed: 03/21/19 17:36> - General Exam Comments Initial Comments: General: The patient is awake and alert, in no distress, and does not appear acutely ill. Eye: +3 mm pupils are equal, round and reactive to light, extra-ocular movements are intact. No nystagmus. There is normal conjunctiva bilaterally. No signs of icterus. Ears, nose, mouth and throat: There are moist mucous membranes and no oral lesions. Neck: The neck is supple, there is no tenderness or JVD. Cardiovascular: There is a regular rate and rhythm. No murmur, rub or gallop is appreciated. Respiratory: Lungs are clear to auscultation, respirations are non-labored, breath sounds are equal. No wheezes, stridor, rales, or rhonchi. Gastrointestinal: Soft, non-distended, non-tender abdomen without masses or organomegaly noted. There is no rebound or guarding present. No CVA tenderness. Pelvic: normal external exam, internal vaginal mucosa pink well rugated. dark red blood in vault, mild-moderate small clot. cervical os closed. no cervical motion or adnexal tenderness. Musculoskeletal: Normal ROM, no tenderness. Strength 5/5. Sensation intact. Radial pulses equal bilaterally 2+. Neurological: A&O x 3. CN II-XII intact grossly, There are no obvious motor or sensory deficits. Coordination appears grossly intact. Speech is normal. Skin: Skin is warm and dry and no rashes or lesions are noted. Psychiatric: Cooperative, appropriate mood & affect, normal judgment. (oLrna Hilario) Course Vital Signs 03/21/19 03/21/19 03/21/19 15:12 17:17 17:19 Temperature 98.3 F 98.3 F Pulse Rate 100 87 87 Respiratory 18 18 18 Rate Blood Pressure 150/95 111/68 111/68 O2 Sat by Pulse 98 100 100 Oximetry Medical Decision Making - Lab Data Result diagrams: 03/21/19 15:50 03/21/19 15:50 <Lorna Hilario - Last Filed: 03/21/19 17:36> - Lab Data Result diagrams: 03/21/19 15:50 03/21/19 15:50 <Teri Coreas - Last Filed: 03/22/19 23:24> - Medical Decision Making 28-year-old female presenting for vaginal bleeding in . Unsure of last period. The regular periods and history. Ultrasound revealed a subchorionic hemorrhage that is large with a viable intrauterine with heartbeat within normal limits. Measuring approximately 6 weeks. Patinet O+. Bleeding mild-moderate. Patient VS stable she appears well without abdominal pain. some mild low back cramping. NO CVA tenderness or urinary symptoms. Urinalysis or findings consistent with urinary tract infection culture pending patient be started on Keflex. Discussed case with attending reviewing US results/labs studies she is agreeable to care plan and discharge with OBGYN f/u. (Lorna Hilario) I was available for consultation in the emergency department. The history and physical exam were done by the midlevel provider. I was consulted for this patients care. I reviewed the case with the midlevel provider and based on their presentation of the patient, I agree with the assessment, medical decision making and plan of care as documented. Chart was dictated using [employer] dictation software. Attempts were made to correct any dictation errors however some typographical errors may persist. (Teri Coreas) - Lab Data Lab Results 03/21/19 03/21/19 03/21/19 Range/Units 15:50 15:50 15:50 WBC 12.2 H (3.8-10.6) k/uL RBC 4.60 (3.80-5.40) m/uL Hgb 14.0 (11.4-16.0) gm/dL Hct 41.5 (34.0-46.0) % MCV 90.2 (80.0-100.0) fL MCH 30.4 (25.0-35.0) pg MCHC 33.7 (31.0-37.0) g/dL RDW 12.7 (11.5-15.5) % Plt Count 295 (150-450) k/uL Neutrophils % 72 % Lymphocytes % 22 % Monocytes % 5 % Eosinophils % 1 % Basophils % 0 % Neutrophils # 8.7 H (1.3-7.7) k/uL Lymphocytes # 2.7 (1.0-4.8) k/uL Monocytes # 0.6 (0-1.0) k/uL Eosinophils # 0.1 (0-0.7) k/uL Basophils # 0.0 (0-0.2) k/uL Sodium 137 (137-145) mmol/L Potassium 3.7 (3.5-5.1) mmol/L Chloride 104 (98-107) mmol/L Carbon Dioxide 23 (22-30) mmol/L Anion Gap 10 mmol/L BUN 13 (7-17) mg/dL Creatinine 0.77 (0.52-1.04) mg/dL Est GFR (CKD-EPI)AfAm >90 (>60 ml/min/1.73 sqM) Est GFR (CKD-EPI)NonAf >90 (>60 ml/min/1.73 sqM) Glucose 78 (74-99) mg/dL Calcium 9.3 (8.4-10.2) mg/dL HCG, Quant 82354.5 mIU/mL Urine Color Urine Appearance (Clear) Urine pH (5.0-8.0) Ur Specific [place] (1.001-1.035) Urine Protein (Negative) Urine Glucose (UA) (Negative) Urine Ketones (Negative) Urine Blood (Negative) Urine Nitrite (Negative) Urine Bilirubin (Negative) Urine Urobilinogen (<2.0) mg/dL Ur Leukocyte Esterase (Negative) Urine RBC (0-5) /hpf Urine WBC (0-5) /hpf Ur Squamous Epith Cells (0-4) /hpf Urine Bacteria (None) /hpf Urine Mucus (None) /hpf Blood Type O Positive Blood Type Recheck O Pos Bld Type Recheck Status No Antibody Screen NEGATIVE Spec Expiration Date 03/24/2019 - 234903/21/19 Range/Units 15:50 WBC (3.8-10.6) k/uL RBC (3.80-5.40) m/uL Hgb (11.4-16.0) gm/dL Hct (34.0-46.0) % MCV (80.0-100.0) fL MCH (25.0-35.0) pg MCHC (31.0-37.0) g/dL RDW (11.5-15.5) % Plt Count (150-450) k/uL Neutrophils % % Lymphocytes % % Monocytes % % Eosinophils % % Basophils % % Neutrophils # (1.3-7.7) k/uL Lymphocytes # (1.0-4.8) k/uL Monocytes # (0-1.0) k/uL Eosinophils # (0-0.7) k/uL Basophils # (0-0.2) k/uL Sodium (137-145) mmol/L Potassium (3.5-5.1) mmol/L Chloride (98-107) mmol/L Carbon Dioxide (22-30) mmol/L Anion Gap mmol/L BUN (7-17) mg/dL Creatinine (0.52-1.04) mg/dL Est GFR (CKD-EPI)AfAm (>60 ml/min/1.73 sqM) Est GFR (CKD-EPI)NonAf (>60 ml/min/1.73 sqM) Glucose (74-99) mg/dL Calcium (8.4-10.2) mg/dL HCG, Quant mIU/mL Urine Color Yellow Urine Appearance Clear (Clear) Urine pH 6.0 (5.0-8.0) Ur Specific [place] 1.023 (1.001-1.035) Urine Protein Trace H (Negative) Urine Glucose (UA) Negative (Negative) Urine Ketones Negative (Negative) Urine Blood Moderate H (Negative) Urine Nitrite Positive H (Negative) Urine Bilirubin Negative (Negative) Urine Urobilinogen <2.0 (<2.0) mg/dL Ur Leukocyte Esterase Small H (Negative) Urine RBC <1 (0-5) /hpf Urine WBC 31 H (0-5) /hpf Ur Squamous Epith Cells 7 H (0-4) /hpf Urine Bacteria Many H (None) /hpf Urine Mucus Few H (None) /hpf Blood Type Blood Type Recheck Bld Type Recheck Status Antibody Screen Spec Expiration Date Disposition Is patient prescribed a controlled substance at d/c from ED?: No Time of Disposition: 17:06 <JaredLorna lipscomb - Last Filed: 03/21/19 17:36> <Teri Coreas - Last Filed: 03/22/19 23:24> Clinical Impression: Subchorionic bleed, UTI (urinary tract infection) Disposition: HOME SELF-CARE Condition: Good Instructions (If sedation given, give patient instructions): Subchorionic Hemorrhage (ED) Additional Instructions: Please use medication as discussed. Please follow-up with OBGYN in the next weeks, call tomorrow to arrange appointment with Dr. Christianson. Please return to emergency room if the symptoms increase or worsen or for any other concerns. Prescriptions: Cephalexin [Keflex] 500 mg PO Q12HR 7 Days #14 cap Referrals: Hudson Wang MD [Primary Care Provider] - 1-2 days
[2019-03-21 16:05] LABS: Basophils % (A) 0 %; Eosinophils # (A) 0.1 k/uL (0-0.7); Eosinophils % (A) 1 %; HCT 41.5 % (34.0-46.0); Lymphocytes # (A) 2.7 k/uL (1.0-4.8); Lymphocytes % (A) 22 %; MCH 30.4 pg (25.0-35.0); MCHC 33.7 g/dL (31.0-37.0); MCV 90.2 fL (80.0-100.0); Monocytes # (A) 0.6 k/uL (0-1.0); Monocytes % (A) 5 %; Neutrophils # (A) 8.7 k/uL (1.3-7.7); Neutrophils % (A) 72 %; Platelet Count 295 k/uL (150-450); RDW 12.7 % (11.5-15.5); WBC 12.2 k/uL (3.8-10.6)
[2019-03-21 16:13] LABS: African American GFR (CKD) >90 (>60 ml/min/1.73 sqM); Anion Gap 10 mmol/L; Blood Urea Nitrogen 13 mg/dL (7-17); Calcium 9.3 mg/dL (8.4-10.2); Carbon Dioxide 23 mmol/L (22-30); Chloride 104 mmol/L (98-107); Glucose 78 mg/dL (74-99); Non-African American GFR(CKD) >90 (>60 ml/min/1.73 sqM); Potassium 3.7 mmol/L (3.5-5.1); Sodium 137 mmol/L (137-145)
[2019-03-21 16:16] LABS: Appearance,Urine Clear (Clear); Bacteria,Urine Many /hpf; Bilirubin,Urine Negative (Negative); Blood,Urine Moderate (Negative); Color,Urine Yellow; Glucose,Urine (UA) Negative (Negative); Ketones,Urine Negative (Negative); Leukocyte Esterase,Urine Small (Negative); Mucus,Urine Few /hpf; Nitrite,Urine Positive (Negative); Protein,Urine Trace (Negative); RBC,Urine <1 /hpf (0-5); Specific Gravity,Urine 1.023 (1.001-1.035); Squamous Epithelial Cell,Urine 7 /hpf (0-4); Urobilinogen,Urine <2.0 mg/dL (<2.0); WBC,Urine 31 /hpf (0-5)
[2019-03-21] MEDS ORDERED: cefTRIAXone IN SWFI 1,000 MG/10 ML SYRINGE IVP STA (16:45)
--- NOTE | 2019-03-21 16:48 | US ---
EXAMINATION TYPE: Transabdominal DATE OF EXAM: 03/21/2019 4:23 PM COMPARISON: NONE CLINICAL HISTORY: pain. Spotting and back cramping x 2 days, 2, para 1, history of EXAM PERFORMED: Transabdominal (TA) EXAM MEASUREMENTS: GESTATIONAL AGE / DATING Physician Established: Not established yet Dates by LMP: Unknown Dates by First Scan: This is 1st scan Dates by Current Scan for: (6 weeks/4 days) EDC: 11/10/2019 MATERNAL ANATOMY Uterus: 11.4 x 6.7 x 8.8cm, anteverted Right Ovary: 3.1 x 2.4 x 2.9cm Left Ovary: 3.0 x 1.9 x 2.1cm Post CDS / Adnexa: wnl Presence of free fluid: no Presence of corpus luteal cyst: right ovary: 1.4 x 1.2 x 1.6cm hypoechoic area Presence of subchorionic bleed: 8.0 x 4.0 x 6.7cm complex bleed GESTATION / SURVEY CRL: 0.7cm (6 weeks/4 days) Yolk Sac (normal less than 6mm): 3.3mm Heart Rate: 142 bpm Rhythm: Normal IUP: Viable IUP Date of LMP: Unknown Beta HcG (if available): Not available at time of exam. Viable single IUP measuring 6 weeks 4 days with a heart rate of 142bpm and an estimated delivery date of 11/10/2019, 8.0 x 4.0 x 6.7cm complex subchorionic bleed. IMPRESSION: No complicating process seen.
[2019-03-21 16:56] LABS: HCG,Quantitative Serum 44246.5 mIU/mL
[2019-03-21 17:18] VITALS: BP 111/68; PULSE 87
== END 2019-03-21 17:20 | disposition home or self-care (01) ==
LOC: EC 15:09
DX: O23.41 Unspecified infection of urinary tract in pregnancy, first trimester (principal); O20.8 Other hemorrhage in early pregnancy; Z67.40 Type O blood, Rh positive; O99.341 Other mental disorders complicating pregnancy, first trimester; F32.9 Major depressive disorder, single episode, unspecified; F41.9 Anxiety disorder, unspecified; Z88.0 Allergy status to penicillin; Z88.6 Allergy status to analgesic agent; Z91.040 Latex allergy status; Z79.3 Long term (current) use of hormonal contraceptives; Z79.899 Other long term (current) drug therapy; Z86.32 Personal history of gestational diabetes; Z87.59 Personal history of other complications of pregnancy, childbirth and the puerperium; Z98.890 Other specified postprocedural states; Z3A.01 Less than 8 weeks gestation of pregnancy
CPT/HCPCS: 36415; 86900; 86901; 80048; 85025; 86850; 81001; 84702; 87086; 76801; 99284; 96374; J0696; 87077; 87186

== ENCOUNTER 2019-03-25 10:58 | Emergency (ER) | payer OTHER ==
--- NOTE | 2019-03-25 12:02 | ED ---
Female Urogenital HPI - General Chief complaint: Vaginal Bleeding Stated complaint: ab bleeding, 7 wks preg Time Seen by Provider: 03/25/19 11:34 Source: patient Mode of arrival: ambulatory Limitations: no limitations - History of Present Illness Initial comments: 28-year-old female presenting for bleeding in . Patient recently diagnosed with subchorionic hemorrhage upon chart review this appears to be large. Patient states she continues to have a mild amount of bleeding however now it is brown. She states she did not know she is supposed to believe this on and was concerned of the color of the discharge she denies any significant pain, or changes in symptomology. Patient denies any other concerns upon arrival patient appears well no signs of acute distress - Related Data Home Medications Medication Instructions Recorded Confirmed Melatonin 5 mg PO HS PRN 11/27/18 11/27/18 Norgestimate-Ethinyl Estradiol 1 tab PO DAILY 11/27/18 11/27/18 [Sprintec 28 Day Tablet] Venlafaxine HCl [Effexor XR] 225 mg PO DAILY 11/27/18 11/27/18 lamoTRIgine [LaMICtal] 100 mg PO DAILY@2100 11/27/18 11/27/18 Previous Rx's Medication Instructions Recorded Levothyroxine Sodium [Synthroid] 125 mcg PO DAILY@0630 30 Days #30 06/28/18 tab Cephalexin [Keflex] 500 mg PO Q12HR 7 Days #14 cap 03/21/19 Allergies Allergy/AdvReac Type Severity Reaction Status Date / Time latex Allergy Rash/Hives Verified 03/25/19 11:33 Penicillins Allergy Rash/Hives Verified 03/25/19 11:33 ibuprofen AdvReac Nausea Verified 03/25/19 11:33 Review of Systems ROS Statement: Those systems with pertinent positive or pertinent negative responses have been documented in the HPI. ROS Other: All systems not noted in ROS Statement are negative. Past Medical History Past Medical History: Thyroid Disorder Additional Past Medical History / Comment(s): gestational diabetes, depression History of Any Multi-Drug Resistant Organisms: None Reported Past Surgical History: Section Past Anesthesia/Blood Transfusion Reactions: No Reported Reaction Additional Past Anesthesia/Blood Transfusion Reaction / Comment(s): Denies recieving a blood transfusion in the past Past Psychological History: Anxiety, Depression Smoking Status: Never smoker Past Alcohol Use History: Rare Past Drug Use History: Marijuana - Past Family History Mother Family Medical History: Thyroid Disorder Father History Unknown: Yes Son(s) Family Medical History: No Reported History General Exam - General Exam Comments Initial Comments: General: The patient is awake and alert, in no distress, and does not appear acutely ill. Eye: Pupils are equal, round and reactive to light, extra-ocular movements are intact. No nystagmus. There is normal conjunctiva bilaterally. No signs of icterus. Cardiovascular: There is a regular rate and rhythm. No murmur, rub or gallop is appreciated. Respiratory: Lungs are clear to auscultation, respirations are non-labored, breath sounds are equal. No wheezes, stridor, rales, or rhonchi. Gastrointestinal: Soft, non-distended, non-tender abdomen without masses or organomegaly noted. There is no rebound or guarding present. Musculoskeletal: Normal ROM, no tenderness. Strength 5/5. Sensation intact. Pulses equal bilaterally 2+. Neurological: A&O x 3. CN II-XII intact grossly, There are no obvious motor or sensory deficits. Coordination appears grossly intact. Speech is normal. Skin: Skin is warm and dry and no rashes or lesions are noted. Psychiatric: Cooperative, appropriate mood & affect, normal judgment. Limitations: no limitations Course Vital Signs 03/25/19 03/25/19 11:28 13:58 Temperature 98.6 F 98.1 F Pulse Rate 81 78 Respiratory 16 20 Rate Blood Pressure 118/73 124/68 O2 Sat by Pulse 98 99 Oximetry Medical Decision Making - Medical Decision Making 28-year-old female presenting for vaginal bleeding in . Diagnosed with 8 cm subchorionic hemorrhage with viable intrauterine last week. Roughly 6 weeks. Patient continues to have bleeding mild to pass one small clot that is more brown in color. At this time differential diagnosis includes spontaneous miscarriage versus subchorionic hemorrhage bleeding. Patient hCG slightly increased. I recommended patient repeat hCG in 2 days to see if it continues to trend upward versus down and recommended outpatient [facility] follow- up contacting them to see if this emergency department visit changes the desired f/u time. Patient appears well and is agreeable with care plan. Discharged appearing well. Case discussed with Dr. Avelar - Lab Data Result diagrams: 03/25/19 12:10 03/25/19 12:10 Lab Results 03/25/19 03/25/19 Range/Units 12:10 12:10 WBC 13.3 H (3.8-10.6) k/uL RBC 4.61 (3.80-5.40) m/uL Hgb 14.2 (11.4-16.0) gm/dL Hct 41.7 (34.0-46.0) % MCV 90.5 (80.0-100.0) fL MCH 30.7 (25.0-35.0) pg MCHC 34.0 (31.0-37.0) g/dL RDW 12.8 (11.5-15.5) % Plt Count 337 (150-450) k/uL Neutrophils % 77 % Lymphocytes % 19 % Monocytes % 3 % Eosinophils % 0 % Basophils % 0 % Neutrophils # 10.2 H (1.3-7.7) k/uL Lymphocytes # 2.6 (1.0-4.8) k/uL Monocytes # 0.4 (0-1.0) k/uL Eosinophils # 0.0 (0-0.7) k/uL Basophils # 0.0 (0-0.2) k/uL Sodium 135 L (137-145) mmol/L Potassium 4.1 (3.5-5.1) mmol/L Chloride 101 (98-107) mmol/L Carbon Dioxide 25 (22-30) mmol/L Anion Gap 9 mmol/L BUN 11 (7-17) mg/dL Creatinine 0.77 (0.52-1.04) mg/dL Est GFR (CKD-EPI)AfAm >90 (>60 ml/min/1.73 sqM) Est GFR (CKD-EPI)NonAf >90 (>60 ml/min/1.73 sqM) Glucose 80 (74-99) mg/dL Calcium 9.7 (8.4-10.2) mg/dL HCG, Quant 14303.6 mIU/mL Disposition Clinical Impression: Vaginal bleeding during , Threatened miscarriage Disposition: HOME SELF-CARE Condition: Good Instructions (If sedation given, give patient instructions): Threatened Miscarriage (ED) Additional Instructions: Please use medication as discussed. Please follow-up with OBGYN. Repeat labs in 2 days. Please return to emergency room if the symptoms increase or worsen or for any other concerns. Is patient prescribed a controlled substance at d/c from ED?: No Referrals: Hudson Wang MD [Primary Care Provider] - 1-2 days Time of Disposition: 13:50
[2019-03-25 12:56] LABS: Basophils % (A) 0 %; Eosinophils % (A) 0 %; HCT 41.7 % (34.0-46.0); HGB 14.2 gm/dL (11.4-16.0); Lymphocytes # (A) 2.6 k/uL (1.0-4.8); Lymphocytes % (A) 19 %; MCH 30.7 pg (25.0-35.0); MCV 90.5 fL (80.0-100.0); Mean Platelet Volume 7.1; Monocytes # (A) 0.4 k/uL (0-1.0); Monocytes % (A) 3 %; Neutrophils # (A) 10.2 k/uL (1.3-7.7); Neutrophils % (A) 77 %; Platelet Count 337 k/uL (150-450); RBC 4.61 m/uL (3.80-5.40); RDW 12.8 % (11.5-15.5); WBC 13.3 k/uL (3.8-10.6)
[2019-03-25 13:00] LABS: African American GFR (CKD) >90 (>60 ml/min/1.73 sqM); Anion Gap 9 mmol/L; Blood Urea Nitrogen 11 mg/dL (7-17); Calcium 9.7 mg/dL (8.4-10.2); Carbon Dioxide 25 mmol/L (22-30); Chloride 101 mmol/L (98-107); Glucose 80 mg/dL (74-99); Non-African American GFR(CKD) >90 (>60 ml/min/1.73 sqM); Potassium 4.1 mmol/L (3.5-5.1); Sodium 135 mmol/L (137-145)
[2019-03-25 13:48] LABS: HCG,Quantitative Serum 49053.6 mIU/mL
[2019-03-25 14:00] VITALS: BP 124/68; PULSE 78; RESP 20; TEMP 98.1
== END 2019-03-25 13:59 | disposition home or self-care (01) ==
LOC: EC 10:58
DX: O20.0 Threatened abortion (principal); O24.419 Gestational diabetes mellitus in pregnancy, unspecified control; O99.341 Other mental disorders complicating pregnancy, first trimester; F32.9 Major depressive disorder, single episode, unspecified; F41.9 Anxiety disorder, unspecified; Z88.0 Allergy status to penicillin; Z88.6 Allergy status to analgesic agent; Z91.040 Latex allergy status; Z79.899 Other long term (current) drug therapy; Z98.890 Other specified postprocedural states; Z3A.01 Less than 8 weeks gestation of pregnancy
CPT/HCPCS: 36415; 80048; 84702; 85025; 99284

== ENCOUNTER → 2019-03-28 | Outpatient (CLI) | payer OTHER | END | disposition home or self-care (01) | LOC: LABWHC1 10:06 | PROVIDERS: ATTEND Physician Assistant Medical | DX: O20.0 Threatened abortion (principal) | CPT/HCPCS: 36415; 84702 ==

== ENCOUNTER 2019-04-03 12:59 | Emergency (ER) | payer OTHER ==
[2019-04-03] MEDS ORDERED: ACETAMINOPHEN TAB 325 MG TAB PO STA (13:50)
[2019-04-03 14:12] LABS: Basophils % (A) 0 %; Eosinophils # (A) 0.1 k/uL (0-0.7); Eosinophils % (A) 1 %; HCT 41.9 % (34.0-46.0); HGB 14.1 gm/dL (11.4-16.0); Lymphocytes # (A) 2.6 k/uL (1.0-4.8); Lymphocytes % (A) 19 %; MCH 30.7 pg (25.0-35.0); MCHC 33.5 g/dL (31.0-37.0); MCV 91.6 fL (80.0-100.0); Mean Platelet Volume 6.7; Monocytes # (A) 0.6 k/uL (0-1.0); Monocytes % (A) 4 %; Neutrophils # (A) 10.5 k/uL (1.3-7.7); Neutrophils % (A) 76 %; Platelet Count 341 k/uL (150-450); RBC 4.58 m/uL (3.80-5.40); RDW 13.3 % (11.5-15.5); WBC 13.8 k/uL (3.8-10.6)
[2019-04-03 14:20] LABS: Appearance,Urine Cloudy (Clear); Bilirubin,Urine Negative (Negative); Blood,Urine Large (Negative); Color,Urine Yellow; Glucose,Urine (UA) Negative (Negative); Ketones,Urine Negative (Negative); Leukocyte Esterase,Urine Trace (Negative); Mucus,Urine Rare /hpf; Nitrite,Urine Negative (Negative); Protein,Urine Negative (Negative); RBC,Urine 1 /hpf (0-5); Specific Gravity,Urine 1.013 (1.001-1.035); Squamous Epithelial Cell,Urine 8 /hpf (0-4); Urobilinogen,Urine <2.0 mg/dL (<2.0); WBC,Urine 4 /hpf (0-5)
[2019-04-03 14:26] LABS: ALT 21 U/L (4-34); AST 23 U/L (14-36); African American GFR (CKD) >90 (>60 ml/min/1.73 sqM); Albumin 4.4 g/dL (3.5-5.0); Alkaline Phosphatase 50 U/L (38-126); Anion Gap 8 mmol/L; Blood Urea Nitrogen 10 mg/dL (7-17); Carbon Dioxide 27 mmol/L (22-30); Chloride 102 mmol/L (98-107); Glucose 61 mg/dL (74-99); Non-African American GFR(CKD) >90 (>60 ml/min/1.73 sqM); Potassium 3.7 mmol/L (3.5-5.1); Sodium 137 mmol/L (137-145); Total Bilirubin 0.4 mg/dL (0.2-1.3); Total Protein 7.6 g/dL (6.3-8.2)
--- NOTE | 2019-04-03 14:31 | ED ---
Abdominal Pain HPI - General Chief Complaint: Abdominal Pain Stated Complaint: 8 wks preg/cramping Time Seen by Provider: 04/03/19 13:33 Source: patient Mode of arrival: ambulatory Limitations: no limitations - History of Present Illness Initial Comments: Patient is a 28-year-old female presenting to the emergency Department with complaints of mild lower abdominal cramping. Patient is currently approximately 8 weeks . . This is patient's fourth visit related to this . Patient had ultrasound performed 2 weeks ago which showed a viable IUP with a large subchronic hemorrhage. Patient states she believes the bleeding has slowed down it is very minimal at this point. Patient came to the ER today because of lower abdominal cramping. She admits to mild nausea that has been present this entire . Patient denies fever, chills, urinary complaints. Patient does not currently have an [facility] as she is awaiting a call back. She has no other complaints at this time. Arrival to the ER, her vital signs are stable. - Related Data Home Medications Medication Instructions Recorded Confirmed Melatonin 5 mg PO HS PRN 11/27/18 11/27/18 Norgestimate-Ethinyl Estradiol 1 tab PO DAILY 11/27/18 11/27/18 [Sprintec 28 Day Tablet] Venlafaxine HCl [Effexor XR] 225 mg PO DAILY 11/27/18 11/27/18 lamoTRIgine [LaMICtal] 100 mg PO DAILY@2100 11/27/18 11/27/18 Previous Rx's Medication Instructions Recorded Levothyroxine Sodium [Synthroid] 125 mcg PO DAILY@0630 30 Days #30 06/28/18 tab Cephalexin [Keflex] 500 mg PO Q12HR 7 Days #14 cap 03/21/19 Allergies Allergy/AdvReac Type Severity Reaction Status Date / Time latex Allergy Rash/Hives Verified 04/03/19 13:25 Penicillins Allergy Rash/Hives Verified 04/03/19 13:25 ibuprofen AdvReac Nausea Verified 04/03/19 13:25 Review of Systems ROS Statement: Those systems with pertinent positive or pertinent negative responses have been documented in the HPI. ROS Other: All systems not noted in ROS Statement are negative. Past Medical History Past Medical History: Thyroid Disorder Additional Past Medical History / Comment(s): gestational diabetes, depression History of Any Multi-Drug Resistant Organisms: None Reported Past Surgical History: Section Past Anesthesia/Blood Transfusion Reactions: No Reported Reaction Additional Past Anesthesia/Blood Transfusion Reaction / Comment(s): Denies recieving a blood transfusion in the past Past Psychological History: Anxiety, Depression Smoking Status: Never smoker Past Alcohol Use History: Rare Past Drug Use History: Marijuana - Past Family History Mother Family Medical History: Thyroid Disorder Father History Unknown: Yes Son(s) Family Medical History: No Reported History General Exam - General Exam Comments Initial Comments: GENERAL: Well-appearing, well-nourished and in no acute distress. HEAD: Atraumatic, normocephalic. EYES: Pupils equal round and reactive to light, extraocular movements intact, sclera anicteric, conjunctiva are normal. ENT: Moist mucous membranes. NECK: Normal range of motion, supple without lymphadenopathy or JVD. LUNGS: Breath sounds clear to auscultation bilaterally and equal. No wheezes rales or rhonchi. HEART: Regular rate and rhythm without murmurs, rubs or gallops. ABDOMEN: Mild suprapubic tenderness. Soft, normoactive bowel sounds. No guarding, no rebound. No masses appreciated. : Deferred, declined. EXTREMITIES: Normal range of motion, no pitting or edema. No clubbing or cyanosis. NEUROLOGICAL: Normal speech, normal gait. PSYCH: Normal mood, normal affect. SKIN: Warm, Dry, normal turgor, no rashes or lesions noted. Limitations: no limitations Course Vital Signs 04/03/19 04/03/19 13:23 15:53 Temperature 98.1 F 98.2 F Pulse Rate 101 H 83 Respiratory 20 18 Rate Blood Pressure 121/82 117/80 O2 Sat by Pulse 100 97 Oximetry Medical Decision Making - Medical Decision Making Patient is a 28-year-old female presenting with lower abdominal cramping times one day. This is patient's fourth visit for related issues. Patient had ultrasound 2 weeks ago showed large subchorionic bleed. Patient states her bleeding is minimal at this time. Vital signs are stable. Lab work shows no acute abnormalities. HCG Quant is 74,000. UA shows no signs of infection. I recommended a vaginal exam however patient declined at this time stating she's had multiple exams recently. I discussed findings with the patient. Her cramping is most likely related to normal changes. Patient is stable for discharge at this time. She'll follow-up with her [facility]. Referral was given. She is in agreement with this plan of care. Return parameters were discussed with the patient she verbalized understanding. Case discussed with Dr. Alatorre. - Lab Data Result diagrams: 04/03/19 14:00 04/03/19 14:00 Lab Results 04/03/19 04/03/19 04/03/19 Range/Units 13:59 14:00 14:00 WBC 13.8 H (3.8-10.6) k/uL RBC 4.58 (3.80-5.40) m/uL Hgb 14.1 (11.4-16.0) gm/dL Hct 41.9 (34.0-46.0) % MCV 91.6 (80.0-100.0) fL MCH 30.7 (25.0-35.0) pg MCHC 33.5 (31.0-37.0) g/dL RDW 13.3 (11.5-15.5) % Plt Count 341 (150-450) k/uL Neutrophils % 76 % Lymphocytes % 19 % Monocytes % 4 % Eosinophils % 1 % Basophils % 0 % Neutrophils # 10.5 H (1.3-7.7) k/uL Lymphocytes # 2.6 (1.0-4.8) k/uL Monocytes # 0.6 (0-1.0) k/uL Eosinophils # 0.1 (0-0.7) k/uL Basophils # 0.0 (0-0.2) k/uL Sodium 137 (137-145) mmol/L Potassium 3.7 (3.5-5.1) mmol/L Chloride 102 (98-107) mmol/L Carbon Dioxide 27 (22-30) mmol/L Anion Gap 8 mmol/L BUN 10 (7-17) mg/dL Creatinine 0.74 (0.52-1.04) mg/dL Est GFR (CKD-EPI)AfAm >90 (>60 ml/min/1.73 sqM) Est GFR (CKD-EPI)NonAf >90 (>60 ml/min/1.73 sqM) Glucose 61 L (74-99) mg/dL Calcium 10.0 (8.4-10.2) mg/dL Total Bilirubin 0.4 (0.2-1.3) mg/dL AST 23 (14-36) U/L ALT 21 (4-34) U/L Alkaline Phosphatase 50 (38-126) U/L Total Protein 7.6 (6.3-8.2) g/dL Albumin 4.4 (3.5-5.0) g/dL HCG, Quant 37007.9 mIU/mL Urine Color Yellow Urine Appearance Cloudy H (Clear) Urine pH 6.0 (5.0-8.0) Ur Specific [place] 1.013 (1.001-1.035) Urine Protein Negative (Negative) Urine Glucose (UA) Negative (Negative) Urine Ketones Negative (Negative) Urine Blood Large H (Negative) Urine Nitrite Negative (Negative) Urine Bilirubin Negative (Negative) Urine Urobilinogen <2.0 (<2.0) mg/dL Ur Leukocyte Esterase Trace H (Negative) Urine RBC 1 (0-5) /hpf Urine WBC 4 (0-5) /hpf Ur Squamous Epith Cells 8 H (0-4) /hpf Urine Mucus Rare H (None) /hpf Disposition Clinical Impression: Abdominal cramping Disposition: HOME SELF-CARE Condition: Stable Instructions (If sedation given, give patient instructions): (ED) Additional Instructions: Please return to the Emergency Department if symptoms worsen or any other concerns. Follow-up with [facility] as discussed. Is patient prescribed a controlled substance at d/c from ED?: No Referrals: Hudson Wang MD [Primary Care Provider] - 1-2 days Bhargavi Ramos DO [Doctor of Osteopathic Medicine] - 1-2 days
[2019-04-03 15:48] LABS: HCG,Quantitative Serum 74141.9 mIU/mL
[2019-04-03 15:55] VITALS: BP 117/80; PULSE 83; RESP 18; TEMP 98.2
== END 2019-04-03 16:22 | disposition home or self-care (01) ==
LOC: EC 12:59
DX: O99.89 Other specified diseases and conditions complicating pregnancy, childbirth and the puerperium (principal); R10.30 Lower abdominal pain, unspecified; R11.0 Nausea; O99.341 Other mental disorders complicating pregnancy, first trimester; F32.9 Major depressive disorder, single episode, unspecified; F41.9 Anxiety disorder, unspecified; Z88.0 Allergy status to penicillin; Z88.6 Allergy status to analgesic agent; Z91.040 Latex allergy status; Z79.899 Other long term (current) drug therapy; Z98.890 Other specified postprocedural states; Z3A.08 8 weeks gestation of pregnancy; Z53.29 Procedure and treatment not carried out because of patient's decision for other reasons
CPT/HCPCS: 36415; 80053; 81001; 84702; 85025; 99284

== ENCOUNTER → 2019-07-13 | Outpatient (CLI) | payer OTHER ==
[2019-07-13 21:32] VITALS: BP 120/86; PULSE 86; RESP 16; TEMP 98.7
--- NOTE | 2019-08-11 08:53 | P.MSEPDOC ---
Presenting Problems - Arrival Data Date of Arrival on Unit: 07/13/19 Time of Arrival on Unit: 20:23 Mode of Transport: Ambulatory - Complaint OB-Reason for Admission/Chief Complaint: Acute Nausea/Vomiting Comment: Patient arrives to triage with complaints of diarrhea, nausea, vomiting x1,. and a temperature earlier this morning, around 07:30. Patient states she feels like she. has been "kicked in the stomach" Medical History - Information : 2 Para: 1 Term: 1 : 0 Abortions: Spontaneous or Elective: 0 Number of Living Children: 1 - Gestational Age Gestational Age by CE (wks/days): 22 Weeks and 6 Days Review of Systems - Review of Systems Constitutional: No problems Breast: No problems ENT: No problems Cardiovascular: No problems Respiratory: No problems Gastrointestinal: Diarrhea, Pain Genitourinary: No problems Musculoskeletal: No problems Neurological: No problems Skin: No problems Vital Signs - Temperature Temperature: 98.7 F Temperature Source: Oral - Pulse Right Brachial Pulse Rate: 86 Pulse Assessment Method: Automatic Cuff - Respirations Respiratory Rate: 16 Oxygen Delivery Method: Room Air O2 Sat by Pulse Oximetry: 98 - Blood Pressure Right Arm Blood Pressure: 120/86 Blood Pressure Mean: 97 Blood Pressure Source: Automatic Cuff Medical Screen Scoring (Pre) - Cervical Exam Dilation: 0 cm = 0 Membranes: Intact - Uterine Contractions Frequency: N/A - Maternal Vital Signs Maternal Temperature: N/A Maternal Blood Pressure: N/A Signs of Preeclampsia: N/A - Maternal Trauma Maternal Trauma: N/A - Assessment - Baby A Baseline FHR: 150 - Total Score - Baby A Total Score - Baby A: 0 - Total Score - Baby B Total Score - Baby B: 0 - Total Score - Baby C Total Score - Baby C: 0 - Level of Risk - Baby A Level of Risk - Baby A: Low (0-5) - Level of Risk - Baby B Level of Risk - Baby B: Low (0-5) - Level of Risk - Baby C Level of Risk - Baby C: Low (0-5) Physician Notification (Pre) - Physician Notified Physician Notified Date: 07/13/19 Physician Notified Time: 20:46 New Order Received: Yes - Notification Comment Comment: RN reported that patient was experiencing abdominal and back pain, nausea,. vomiting x1, and a temperature earlier this morning. heart tones auscultated. 140-160 by doppler. Patients vital signs are within normal limits here. Dr. Christianson would. like a FFN and a cervical exam done. RN to notify physician after cervical exam. Dr. Christianson notified that cervix was closed and thick. No contractions noted per. TOCO. RN instructed to discharge patient with instructions to rest and stay hydrated. Patient updated on plan of care and is in agreement. Disposition - Disposition OB Disposition: Discharge to home Discharge Date: 07/13/19 Discharge Time: 21:30 I agree with the RN Medical Screening Exam: Yes Risk & Benefit of care provided described in d/c instruction: Yes Diagnosis: VOMITING OF , UNSPECIFIED
== END | disposition home or self-care (01) ==
LOC: FBPOP 20:23
PROVIDERS: ATTEND Obstetrics & Gynecology
DX: O21.2 Late vomiting of pregnancy (principal); Z3A.22 22 weeks gestation of pregnancy
CPT/HCPCS: 99213

== ENCOUNTER 2020-10-10 | Emergency (ER) | payer OTHER | END 2020-10-10 04:35 | disposition home or self-care (01) | CPT/HCPCS: 71046; 99283 ==

== ENCOUNTER 2020-10-24 04:04 | Emergency (ER) | payer OTHER ==
[2020-10-24 04:10] VITALS: BP 112/76; TEMP 98.8
[2020-10-24] MEDS ORDERED: IPRATROPIUM-ALBUTEROL 3 ML NEB INHALATION STA (04:21)
[2020-10-24] MEDS ORDERED: predniSONE 20 MG TAB PO STA (04:21)
--- NOTE | 2020-10-24 04:26 | ED ---
URI HPI - General Chief Complaint: Upper Respiratory Infection Stated Complaint: cough Time Seen by Provider: 10/24/20 04:07 Source: patient, RN notes reviewed, old records reviewed Mode of arrival: ambulatory Limitations: no limitations - History of Present Illness Initial Comments: This is a 29-year-old female presenting with persistent cough chronic cough going on 2-3 weeks now. Patient has no recent travel history or sick contacts she does have prior ER visit which she took azithromycin for which did seem to help. Does have some coughing fits which included to gag not vomit. Otherwise no pain no fevers. History of asthma will she does not have asthma exacerbations, history of smoking marijuana does not smoke cigarettes. No vaping MD Complaint: cough -: week(s) Severity: moderate Severity scale (1-10): 4 Quality: sharp Consistency: constant Improves With: nothing Worsens With: nothing Context: new medications Associated Symptoms: denies other symptoms Treatments Prior to Arrival: none - Related Data Home Medications Medication Instructions Recorded Confirmed Pnv No.95/Ferrous Fum/Folic AC 1 tab PO DAILY 07/13/19 07/13/19 [ Multivitamin Tablet] Previous Rx's Medication Instructions Recorded Levothyroxine Sodium [Synthroid] 125 mcg PO DAILY@0630 30 Days #30 06/28/18 tab Azithromycin [Zithromax Z-pack (6 0 mg PO DIRECTED #1 pack 10/10/20 tabs)] Allergies Allergy/AdvReac Type Severity Reaction Status Date / Time latex Allergy Rash/Hives Verified 10/24/20 04:09 Penicillins Allergy Anaphylaxis Verified 10/24/20 04:09 ibuprofen AdvReac Nausea Verified 10/24/20 04:09 Review of Systems ROS Statement: Those systems with pertinent positive or pertinent negative responses have been documented in the HPI. ROS Other: All systems not noted in ROS Statement are negative. Past Medical History Past Medical History: Thyroid Disorder Additional Past Medical History / Comment(s): gestational diabetes, depression History of Any Multi-Drug Resistant Organisms: None Reported Past Surgical History: Section Past Anesthesia/Blood Transfusion Reactions: No Reported Reaction Additional Past Anesthesia/Blood Transfusion Reaction / Comment(s): Denies recieving a blood transfusion in the past Past Psychological History: Anxiety, Depression, PTSD Smoking Status: Never smoker Past Alcohol Use History: Rare Past Drug Use History: Marijuana - Past Family History Mother Family Medical History: Thyroid Disorder Father History Unknown: Yes Son(s) Family Medical History: No Reported History General Exam Limitations: no limitations General appearance: alert, in no apparent distress Head exam: Present: atraumatic, normocephalic, normal inspection Eye exam: Present: normal appearance, PERRL, EOMI. Absent: scleral icterus, conjunctival injection, periorbital swelling ENT exam: Present: normal exam, mucous membranes moist Neck exam: Present: normal inspection. Absent: tenderness, meningismus, lympha denopathy Respiratory exam: Present: normal lung sounds bilaterally. Absent: respiratory distress, wheezes, rales, rhonchi, stridor Cardiovascular Exam: Present: regular rate, normal rhythm, normal heart sounds. Absent: systolic murmur, diastolic murmur, rubs, gallop, clicks GI/Abdominal exam: Present: soft, normal bowel sounds. Absent: distended, tenderness, guarding, rebound, rigid Extremities exam: Present: normal inspection, full ROM, normal capillary refill. Absent: tenderness, pedal edema, joint swelling, calf tenderness Back exam: Present: normal inspection Neurological exam: Present: alert, oriented X3, CN II-XII intact Psychiatric exam: Present: normal affect, normal mood Skin exam: Present: warm, dry, intact, normal color. Absent: rash Course Vital Signs 10/24/20 10/24/20 04:07 05:01 Temperature 98.8 F Pulse Rate 101 H 90 Respiratory 20 17 Rate Blood Pressure 112/76 O2 Sat by Pulse 98 Oximetry - Reevaluation(s) Reevaluation #1: 10/24/20 04:26 Medical record is reviewed 10/24/20 04:26 Prior x-ray has been reviewed Medical Decision Making - Medical Decision Making 79 female DEL with chronic cough. Likely pertussis related patient was very prescribed azithromycin will trial outpatient steroids and patient can be discharged home - Radiology Data Radiology results: report reviewed (Chest x-rays negative for acute disease), image reviewed Disposition Clinical Impression: Bronchitis, Acute upper respiratory infection Disposition: HOME SELF-CARE Condition: Good Instructions (If sedation given, give patient instructions): Upper Respiratory Infection (ED), Chronic Cough (ED) Is patient prescribed a controlled substance at d/c from ED?: No Referrals: None,Stated [Primary Care Provider] - 1-2 days
--- NOTE | 2020-10-24 04:36 | XR ---
EXAMINATION TYPE: XR chest 2V DATE OF EXAM: 10/24/2020 COMPARISON: NONE HISTORY: Cough TECHNIQUE: 2 views FINDINGS: Heart and mediastinum are normal. Lungs are clear. Diaphragm is normal. Bony thorax is inta ct. IMPRESSION: Normal chest. Normal heart.
[2020-10-24 05:03] VITALS: PULSE 90; RESP 17
== END 2020-10-24 06:08 | disposition home or self-care (01) ==
LOC: EC 04:04
DX: J40 Bronchitis, not specified as acute or chronic (principal); J06.9 Acute upper respiratory infection, unspecified; E07.9 Disorder of thyroid, unspecified; F32.9 Major depressive disorder, single episode, unspecified; F12.90 Cannabis use, unspecified, uncomplicated
CPT/HCPCS: 94640; 71046; 99283; J7512

== ENCOUNTER 2020-11-16 00:37 | Emergency (ER) | payer OTHER ==
--- NOTE | 2020-11-16 01:04 | ED ---
Female Urogenital HPI - General Chief complaint: Vaginal Bleeding Stated complaint: Vaginal Bleeding, 5 wks Time Seen by Provider: 11/16/20 00:51 Source: patient Mode of arrival: ambulatory Limitations: no limitations - History of Present Illness Initial comments: Patient is a 30-year-old female presenting to emergency Department with complaints of lower abdominal cramping and vaginal bleeding over the past 1-2 days. She states she just found out last week that she is , she believes she is approximately 5-6 weeks along. , last POSTAGE MACHINE OPERATOR is Dr. Syed however she did use at high risk doctor in [place] as well. She de scribes a cramping is lower abdomen, both sides. She states the bleeding has been minimal but has been there over the past 1-2 days. She had a large subchorionic hemorrhage with her last . She denies any chest pain or shortness of breath, no coughing. She admits to history of 2 sections but no other abdominal surgeries, she denies any dysuria. She has no further complaints. Last Menstrual Period: 10/04/20 - Related Data Home Medications Medication Instructions Recorded Confirmed Pnv No.95/Ferrous Fum/Folic AC 1 tab PO DAILY 07/13/19 07/13/19 [ Multivitamin Tablet] Previous Rx's Medication Instructions Recorded Levothyroxine Sodium [Synthroid] 125 mcg PO DAILY@0630 30 Days #30 06/28/18 tab Azithromycin [Zithromax Z-pack (6 0 mg PO DIRECTED #1 pack 10/10/20 tabs)] Albuterol Sulfate [Proair Hfa] 1 - 2 puff INHALATION Q4H PRN #1 10/24/20 inhaler predniSONE 50 mg PO DAILY #5 tab 10/24/20 Allergies Allergy/AdvReac Type Severity Reaction Status Date / Time latex Allergy Rash/Hives Verified 10/24/20 04:09 Penicillins Allergy Anaphylaxis Verified 10/24/20 04:09 ibuprofen AdvReac Nausea Verified 10/24/20 04:09 Review of Systems ROS Statement: Those systems with pertinent positive or pertinent negative responses have been documented in the HPI. ROS Other: All systems not noted in ROS Statement are negative. Past Medical History Past Medical History: Thyroid Disorder Additional Past Medical History / Comment(s): gestational diabetes, depression History of Any Multi-Drug Resistant Organisms: None Reported Past Surgical History: Section Past Anesthesia/Blood Transfusion Reactions: No Reported Reaction Additional Past Anesthesia/Blood Transfusion Reaction / Comment(s): Denies recieving a blood transfusion in the past Past Psychological History: Anxiety, Depression, PTSD Smoking Status: Never smoker Past Alcohol Use History: Rare Past Drug Use History: Marijuana - Past Family History Mother Family Medical History: Thyroid Disorder Father History Unknown: Yes Son(s) Family Medical History: No Reported History General Exam - General Exam Comments Initial Comments: GENERAL: Patient is well-developed and well-nourished. Patient is nontoxic and in no acute distress. HEAD: Atraumatic, normocephalic. EYES: Pupils equal round and reactive to light, extraocular movements intact, sclera anicteric, conjunctiva are normal. Eyelids were unremarkable. ENT: Nares patent, oropharynx clear without exudates. Moist mucous membranes. NECK: Normal range of motion, supple without lymphadenopathy or JVD. LUNGS: Unlabored respirations. Breath sounds clear to auscultation bilaterally and equal. No wheezes rales or rhonchi. HEART: Regular rate and rhythm without murmurs, rubs or gallops. ABDOMEN: Soft, nontender, normoactive bowel sounds. No guarding, no rebound. No masses appreciated. : Deferred MUSCULOSKELETAL: Normal extremities with adequate strength and normal range of motion, no pitting or edema. No clubbing or cyanosis. NEUROLOGICAL: Patient is alert and oriented x 3. PSYCH: Normal mood, normal affect. SKIN: Warm, Dry, normal turgor, no rashes or lesions noted. Limitations: no limitations Course Vital Signs 11/16/20 00:50 Temperature 98.3 F Pulse Rate 72 Respiratory 18 Rate Blood Pressure 131/78 O2 Sat by Pulse 97 Oximetry Medical Decision Making - Medical Decision Making Patient is a 30-year-old female here for abdominal cramping and vaginal bleeding over the past 1-2 days. She is newly , , last POSTAGE MACHINE OPERATOR is Dr. Syed. Labs are within normal limits, urine shows no evidence of infection. Ultrasound shows a viable IUP with heart rate around 115, lower limit of normal, approximate age of 6 weeks and 2 days. There is a possible small subchorionic bleed. Blood type is O+. HCG is almost 32,000. I discussed these findings with the patient. Patient will follow up with her POSTAGE MACHINE OPERATOR, she is thinking about going back to see her high risk control field representative in [place]. Return parameters were discussed with her and she verbalized understanding. She is stable for discharge. Case discussed with Dr. Avelar. - Lab Data Result diagrams: 11/16/20 01:02 11/16/20 01:02 Lab Results 11/16/20 11/16/20 11/16/20 Range/Units 01:02 01:02 01:02 WBC 12.4 H (3.8-10.6) k/uL RBC 4.34 (3.80-5.40) m/uL Hgb 13.6 (11.4-16.0) gm/dL Hct 41.0 (34.0-46.0) % MCV 94.4 (80.0-100.0) fL MCH 31.4 (25.0-35.0) pg MCHC 33.3 (31.0-37.0) g/dL RDW 14.2 (11.5-15.5) % Plt Count 312 (150-450) k/uL MPV 7.0 Neutrophils % 65 % Lymphocytes % 28 % Monocytes % 4 % Eosinophils % 1 % Basophils % 0 % Neutrophils # 8.1 H (1.3-7.7) k/uL Lymphocytes # 3.4 (1.0-4.8) k/uL Monocytes # 0.5 (0-1.0) k/uL Eosinophils # 0.1 (0-0.7) k/uL Basophils # 0.1 (0-0.2) k/uL Sodium (137-145) mmol/L Potassium (3.5-5.1) mmol/L Chloride (98-107) mmol/L Carbon Dioxide (22-30) mmol/L Anion Gap mmol/L BUN (7-17) mg/dL Creatinine (0.52-1.04) mg/dL Est GFR (CKD-EPI)AfAm (>60 ml/min/1.73 sqM) Est GFR (CKD-EPI)NonAf (>60 ml/min/1.73 sqM) Glucose (74-99) mg/dL Calcium (8.4-10.2) mg/dL Total Bilirubin (0.2-1.3) mg/dL AST (14-36) U/L ALT (4-34) U/L Alkaline Phosphatase (38-126) U/L Total Protein (6.3-8.2) g/dL Albumin (3.5-5.0) g/dL HCG, Quant mIU/mL Urine Color Yellow Urine Appearance Cloudy H (Clear) Urine pH 5.5 (5.0-8.0) Ur Specific [place] 1.024 (1.001-1.035) Urine Protein Negative (Negative) Urine Glucose (UA) Negative (Negative) Urine Ketones Negative (Negative) Urine Blood Negative (Negative) Urine Nitrite Negative (Negative) Urine Bilirubin Negative (Negative) Urine Urobilinogen <2.0 (<2.0) mg/dL Ur Leukocyte Esterase Large H (Negative) Urine RBC 1 (0-5) /hpf Urine WBC 2 (0-5) /hpf Ur Squamous Epith Cells 7 H (0-4) /hpf Calcium Oxalate Crystal Moderate H (None) /hpf Urine Mucus Rare H (None) /hpf Blood Type O Positive Blood Type Recheck O Pos Bld Type Recheck Status No 11/16/20 Range/Units 01:02 WBC (3.8-10.6) k/uL RBC (3.80-5.40) m/uL Hgb (11.4-16.0) gm/dL Hct (34.0-46.0) % MCV (80.0-100.0) fL MCH (25.0-35.0) pg MCHC (31.0-37.0) g/dL RDW (11.5-15.5) % Plt Count (150-450) k/uL MPV Neutrophils % % Lymphocytes % % Monocytes % % Eosinophils % % Basophils % % Neutrophils # (1.3-7.7) k/uL Lymphocytes # (1.0-4.8) k/uL Monocytes # (0-1.0) k/uL Eosinophils # (0-0.7) k/uL Basophils # (0-0.2) k/uL Sodium 137 (137-145) mmol/L Potassium 3.9 (3.5-5.1) mmol/L Chloride 107 (98-107) mmol/L Carbon Dioxide 19 L (22-30) mmol/L Anion Gap 11 mmol/L BUN 14 (7-17) mg/dL Creatinine 0.79 (0.52-1.04) mg/dL Est GFR (CKD-EPI)AfAm >90 (>60 ml/min/1.73 sqM) Est GFR (CKD-EPI)NonAf >90 (>60 ml/min/1.73 sqM) Glucose 110 H (74-99) mg/dL Calcium 9.8 (8.4-10.2) mg/dL Total Bilirubin <0.1 L (0.2-1.3) mg/dL AST 21 (14-36) U/L ALT 17 (4-34) U/L Alkaline Phosphatase 59 (38-126) U/L Total Protein 6.9 (6.3-8.2) g/dL Albumin 4.2 (3.5-5.0) g/dL HCG, Quant 99416.6 mIU/mL Urine Color Urine Appearance (Clear) Urine pH (5.0-8.0) Ur Specific [place] (1.001-1.035) Urine Protein (Negative) Urine Glucose (UA) (Negative) Urine Ketones (Negative) Urine Blood (Negative) Urine Nitrite (Negative) Urine Bilirubin (Negative) Urine Urobilinogen (<2.0) mg/dL Ur Leukocyte Esterase (Negative) Urine RBC (0-5) /hpf Urine WBC (0-5) /hpf Ur Squamous Epith Cells (0-4) /hpf Calcium Oxalate Crystal (None) /hpf Urine Mucus (None) /hpf Blood Type Blood Type Recheck Bld Type Recheck Status Disposition Clinical Impression: Vaginal bleeding during , Subchorionic bleed Disposition: HOME SELF-CARE Condition: Stable Instructions (If sedation given, give patient instructions): Non-Threatening First Trimester Vaginal Bleed (ED) Additional Instructions: Please return to the Emergency Department if symptoms worsen or any other concerns. Please follow up with your POSTAGE MACHINE OPERATOR as discussed. Is patient prescribed a controlled substance at d/c from ED?: No Referrals: None,Stated [Primary Care Provider] - 1-2 days Time of Disposition: 02:25
[2020-11-16 01:30] VITALS: RESP 18
[2020-11-16 01:37] LABS: Basophils # (A) 0.1 k/uL (0-0.2); Basophils % (A) 0 %; Eosinophils # (A) 0.1 k/uL (0-0.7); Eosinophils % (A) 1 %; HGB 13.6 gm/dL (11.4-16.0); Lymphocytes # (A) 3.4 k/uL (1.0-4.8); Lymphocytes % (A) 28 %; MCH 31.4 pg (25.0-35.0); MCHC 33.3 g/dL (31.0-37.0); MCV 94.4 fL (80.0-100.0); Monocytes # (A) 0.5 k/uL (0-1.0); Monocytes % (A) 4 %; Neutrophils # (A) 8.1 k/uL (1.3-7.7); Neutrophils % (A) 65 %; Platelet Count 312 k/uL (150-450); RBC 4.34 m/uL (3.80-5.40); RDW 14.2 % (11.5-15.5); WBC 12.4 k/uL (3.8-10.6)
[2020-11-16 01:43] LABS: ALT 17 U/L (4-34); AST 21 U/L (14-36); African American GFR (CKD) >90 (>60 ml/min/1.73 sqM); Albumin 4.2 g/dL (3.5-5.0); Alkaline Phosphatase 59 U/L (38-126); Anion Gap 11 mmol/L; Appearance,Urine Cloudy (Clear); Bilirubin,Urine Negative (Negative); Blood Urea Nitrogen 14 mg/dL (7-17); Blood,Urine Negative (Negative); Calcium 9.8 mg/dL (8.4-10.2); Calcium Oxalate Crystals,Urine Moderate /hpf; Carbon Dioxide 19 mmol/L (22-30); Chloride 107 mmol/L (98-107); Color,Urine Yellow; Glucose 110 mg/dL (74-99); Glucose,Urine (UA) Negative (Negative); Ketones,Urine Negative (Negative); Leukocyte Esterase,Urine Large (Negative); Mucus,Urine Rare /hpf; Nitrite,Urine Negative (Negative); Non-African American GFR(CKD) >90 (>60 ml/min/1.73 sqM); PH, Urine 5.5 (5.0-8.0); Potassium 3.9 mmol/L (3.5-5.1); Protein,Urine Negative (Negative); RBC,Urine 1 /hpf (0-5); Sodium 137 mmol/L (137-145); Specific Gravity,Urine 1.024 (1.001-1.035); Squamous Epithelial Cell,Urine 7 /hpf (0-4); Total Bilirubin <0.1 mg/dL (0.2-1.3); Total Protein 6.9 g/dL (6.3-8.2); Urobilinogen,Urine <2.0 mg/dL (<2.0); WBC,Urine 2 /hpf (0-5)
--- NOTE | 2020-11-16 02:10 | US ---
EXAMINATION TYPE: Transabdominal DATE OF EXAM: 11/16/2020 1:43 AM COMPARISON: US, This is first US for this . CLINICAL HISTORY: vaginal bleeding/cramping, 5wks preg. Bleeding. Hx 1 , 2 C-Sections. . LMP unknown. EXAM PERFORMED: Transvaginal (TV) and Transabdominal (TA) EXAM MEASUREMENTS: GESTATIONAL AGE / DATING Physician Established: Not yet established. Dates by LMP: Unknown. Dates by First Scan: This is first scan. Dates by Current Scan for: (6 weeks/2 days) EDC: 07/10/2021. MATERNAL ANATOMY Uterus: 9.6 x 8.6 x 5.4 cm. Anteverted. Limited measurement. Right Ovary: 3.8 x 2.3 x 2.0 cm. Follicles seen. Left Ovary: 4.2 x 3.0 x 2.8 cm. Appears slightly enlarged. Complex area seen with vascularity: 2.2 x 2.1 x 1.7 cm. Post CDS / Adnexa: Minimal fluid seen in right and left adnexa. Presence of free fluid: Fluid seen in bilateral adnexa and midline posterior to the uterus. Presence of corpus luteal cyst: Possible within left ovary as mentioned above: Complex area seen with vascularity: 2.2 x 2.1 x 1.7 cm. Presence of subchorionic bleed: Possible-Heterogeneous, hypoechoic area seen adjacent to the gestatio nal sac: 0.6 x 0.7 x 0.8 cm. GESTATION / SURVEY CRL: 0.52 cm. (6 weeks/2 days) Yolk Sac (normal less than 6mm): 2.7 mm. Heart Rate: 115 bpm first measurement, 113 bpm second measurement. Rhythm: Slightly low heart rate (<120 bpm). IUP: Viable IUP Date of LMP: Unknown. Beta HcG (if available): Not available. IMPRESSION: The ultrasound gestational age is 6 weeks and 2 days. Heart rate is lower limit of normal.
[2020-11-16 02:23] LABS: HCG,Quantitative Serum 31993.6 mIU/mL
[2020-11-16 02:56] VITALS: BP 125/75; PULSE 87; TEMP 98.7
== END 2020-11-16 02:55 | disposition home or self-care (01) ==
LOC: EC 00:37
DX: O20.9 Hemorrhage in early pregnancy, unspecified (principal); O99.281 Endocrine, nutritional and metabolic diseases complicating pregnancy, first trimester; E03.9 Hypothyroidism, unspecified; Z79.890 Hormone replacement therapy; O99.321 Drug use complicating pregnancy, first trimester; F12.90 Cannabis use, unspecified, uncomplicated; Z79.52 Long term (current) use of systemic steroids; Z88.0 Allergy status to penicillin; Z88.6 Allergy status to analgesic agent; Z83.49 Family history of other endocrine, nutritional and metabolic diseases; Z3A.01 Less than 8 weeks gestation of pregnancy
CPT/HCPCS: 36415; 76801; 76817; 80053; 81001; 84702; 85025; 86900; 86901; 99284

== ENCOUNTER 2020-11-22 16:58 | Emergency (ER) | payer OTHER ==
[2020-11-22] MEDS ORDERED: PROPARACAINE 0.5% OPHTH DROPS 15 ML BTL RIGHT EYE STA (18:47)
[2020-11-22] MEDS ORDERED: FLUORESCEIN STRIPS 1 MG STRIP RIGHT EYE ONE (18:47)
--- NOTE | 2020-11-22 19:24 | ED ---
Eye Problem HPI - General Chief complaint: Eye Problems Stated complaint: Eye pain/ irritation Time Seen by Provider: 11/22/20 18:47 Source: patient Mode of arrival: ambulatory Limitations: no limitations - History of Present Illness Initial comments: Patient is a 30-year-old female presenting to the emergency Department with complaints of irritation to her left eyelid started last night. She states this started at work, she does work in a factory however does not feel like the thing was in her eye. She does wear contacts, she did take them out last night. When she woke up this morning she states it still feel really irritated, it was hard time opening up her eye. There was no yellow crusting, she's been having clear drainage. Her eye doesn't really red, no obvious foreign by that she can see. She no longer has her contacts in today. She denies any fevers or chills, no further complaints today. - Related Data Home Medications Medication Instructions Recorded Confirmed Pnv No.95/Ferrous Fum/Folic AC 1 tab PO DAILY 07/13/19 07/13/19 [ Multivitamin Tablet] Previous Rx's Medication Instructions Recorded Levothyroxine Sodium [Synthroid] 125 mcg PO DAILY@0630 30 Days #30 06/28/18 tab Azithromycin [Zithromax Z-pack (6 0 mg PO DIRECTED #1 pack 10/10/20 tabs)] Albuterol Sulfate [Proair Hfa] 1 - 2 puff INHALATION Q4H PRN #1 10/24/20 inhaler predniSONE 50 mg PO DAILY #5 tab 10/24/20 Ciprofloxacin Ophth Soln [Ciloxan 2 drops LEFT EYE QID 5 Days #2.5 ml 11/22/20 0.3% Ophth Soln] Allergies Allergy/AdvReac Type Severity Reaction Status Date / Time latex Allergy Rash/Hives Verified 11/22/20 17:07 Penicillins Allergy Anaphylaxis Verified 11/22/20 17:07 ibuprofen AdvReac Nausea Verified 11/22/20 17:07 Review of Systems ROS Statement: Those systems with pertinent positive or pertinent negative responses have been documented in the HPI. ROS Other: All systems not noted in ROS Statement are negative. Past Medical History Past Medical History: Thyroid Disorder Additional Past Medical History / Comment(s): gestational diabetes, depression History of Any Multi-Drug Resistant Organisms: None Reported Past Surgical History: Section Past Anesthesia/Blood Transfusion Reactions: No Reported Reaction Additional Past Anesthesia/Blood Transfusion Reaction / Comment(s): Denies recieving a blood transfusion in the past Past Psychological History: Anxiety, Depression, PTSD Smoking Status: Never smoker Past Alcohol Use History: Rare Past Drug Use History: Marijuana - Past Family History Mother Family Medical History: Thyroid Disorder Father History Unknown: Yes Son(s) Family Medical History: No Reported History General Exam - General Exam Comments Initial Comments: GENERAL: Patient is well-developed and well-nourished. Patient is nontoxic and in no acute distress. HEAD: Atraumatic, normocephalic. EYES: Pupils equal round and reactive to light, extraocular movements intact, sclera anicteric. Eyelids were unremarkable. Left eye is slightly injected, no foreign body visible. On fluorescein stain, no abrasions noted or foreign bodies. Acuity is normal. ENT: TMs normal, nares patent, oropharynx clear without exudates. Moist mucous membranes. NECK: Normal range of motion, supple without lymphadenopathy or JVD. LUNGS: Unlabored respirations. Breath sounds clear to auscultation bilaterally and equal. No wheezes rales or rhonchi. HEART: Regular rate and rhythm without murmurs, rubs or gallops. MUSCULOSKELETAL: Normal extremities with adequate strength and normal range of motion, no pitting or edema. No clubbing or cyanosis. SKIN: Warm, Dry, normal turgor, no rashes or lesions noted. Limitations: no limitations Course Vital Signs 11/22/20 17:05 Temperature 98.4 F Pulse Rate 100 Respiratory 18 Rate Blood Pressure 137/73 O2 Sat by Pulse 96 Oximetry Medical Decision Making - Medical Decision Making Patient is a 30-year-old female here for left rotation since yesterday. She was wearing her contacts yesterday, no obvious foreign body seen today. No abrasions noted with forced stain stain. Patient does not have her contacts in today. Given the mechanism, I feel like conjunctivitis is less likely, I will treat her for possible abrasion. Patient was instructed not to wear her contacts until treatment is resolved. If symptoms persist she can follow up with her eye doctor. She is agreeable to this. She is stable for discharge. Disposition Clinical Impression: Left corneal abrasion Disposition: HOME SELF-CARE Condition: Stable Instructions (If sedation given, give patient instructions): Corneal Abrasion (ED) Additional Instructions: Please return to the Emergency Department if symptoms worsen or any other concerns. Use eyedrops as prescribed. Please follow up with your eye doctor if symptoms persist. Prescriptions: Ciprofloxacin Ophth Soln [Ciloxan 0.3% Ophth Soln] 2 drops LEFT EYE QID 5 Days #2.5 ml Is patient prescribed a controlled substance at d/c from ED?: No Referrals: Hudson Wang MD [Primary Care Provider] - 1-2 days Time of Disposition: 19:24
[2020-11-22 19:29] VITALS: BP 127/79; PULSE 81; RESP 16; TEMP 97.9
== END 2020-11-22 19:29 | disposition home or self-care (01) ==
LOC: EC 16:58
DX: S05.02XA Injury of conjunctiva and corneal abrasion without foreign body, left eye, initial encounter (principal); F12.90 Cannabis use, unspecified, uncomplicated; Z79.890 Hormone replacement therapy; Z79.52 Long term (current) use of systemic steroids; W22.8XXA Striking against or struck by other objects, initial encounter
CPT/HCPCS: 99283

== ENCOUNTER 2020-11-25 19:53 | Emergency (ER) | payer OTHER ==
[2020-11-25 20:25] VITALS: TEMP 99.7
[2020-11-25] MEDS ORDERED: SODIUM CHLORIDE 0.9% 1,000 ML IV ONE (21:04)
[2020-11-25] MEDS ORDERED: ACETAMINOPHEN TAB 500 MG TAB PO STA (21:19)
[2020-11-25 22:18] LABS: Appearance,Urine Clear (Clear); Bilirubin,Urine Negative (Negative); Blood,Urine Moderate (Negative); Color,Urine Yellow; Glucose,Urine (UA) Negative (Negative); Ketones,Urine Negative (Negative); Leukocyte Esterase,Urine Negative (Negative); Mucus,Urine Rare /hpf; Nitrite,Urine Negative (Negative); PH, Urine 6.5 (5.0-8.0); Protein,Urine Trace (Negative); RBC,Urine <1 /hpf (0-5); Specific Gravity,Urine 1.031 (1.001-1.035); Squamous Epithelial Cell,Urine 4 /hpf (0-4); Urobilinogen,Urine <2.0 mg/dL (<2.0); WBC,Urine 2 /hpf (0-5)
[2020-11-25 22:22] LABS: Basophils # (A) 0.1 k/uL (0-0.2); Basophils % (A) 0 %; Eosinophils # (A) 0.2 k/uL (0-0.7); Eosinophils % (A) 1 %; HCT 40.8 % (34.0-46.0); HGB 13.8 gm/dL (11.4-16.0); Lymphocytes # (A) 3.4 k/uL (1.0-4.8); Lymphocytes % (A) 23 %; MCH 32.5 pg (25.0-35.0); MCHC 33.8 g/dL (31.0-37.0); MCV 96.1 fL (80.0-100.0); Mean Platelet Volume 7.5; Monocytes # (A) 0.7 k/uL (0-1.0); Monocytes % (A) 5 %; Neutrophils # (A) 10.4 k/uL (1.3-7.7); Neutrophils % (A) 70 %; Platelet Count 318 k/uL (150-450); RBC 4.24 m/uL (3.80-5.40); RDW 14.3 % (11.5-15.5); WBC 14.9 k/uL (3.8-10.6)
[2020-11-25 22:34] LABS: ALT 17 U/L (4-34); AST 23 U/L (14-36); African American GFR (CKD) >90 (>60 ml/min/1.73 sqM); Albumin 4.2 g/dL (3.5-5.0); Alkaline Phosphatase 56 U/L (38-126); Anion Gap 7 mmol/L; Blood Urea Nitrogen 18 mg/dL (7-17); Calcium 9.4 mg/dL (8.4-10.2); Carbon Dioxide 24 mmol/L (22-30); Chloride 103 mmol/L (98-107); Glucose 82 mg/dL (74-99); Non-African American GFR(CKD) >90 (>60 ml/min/1.73 sqM); Potassium 4.1 mmol/L (3.5-5.1); Sodium 134 mmol/L (137-145); Total Bilirubin 0.1 mg/dL (0.2-1.3)
[2020-11-25 22:59] VITALS: BP 129/79; PULSE 64; RESP 18
--- NOTE | 2020-11-25 23:08 | ED ---
General Adult HPI - General Chief complaint: Vaginal Bleeding Stated complaint: Vaginal Bleeding 7 Weeks Preg Time Seen by Provider: 11/25/20 21:01 Source: patient, RN notes reviewed Mode of arrival: ambulatory - History of Present Illness Initial comments: 30-year-old female currently approx. 8 weeks with a past medical history of gestational diabetes, depression, thyroid disorder presents to the emergency room for a complaint of vaginal bleeding. Patient reports she was on her way home with her boyfriend when she started to develop some vaginal bleeding. States that this happened a few weeks ago when she had a subchorionic hemorrhage and was seen in the emergency room. Patient states the bleeding has now slowed but she still has sensation of everything was okay. She also admits to some cramping.Patient has no other complaints at this time including shortness of breath, chest pain, abdominal pain, nausea or vomiting, headache, or visual changes. - Related Data Home Medications Medication Instructions Recorded Confirmed Pnv No.95/Ferrous Fum/Folic AC 1 tab PO DAILY 07/13/19 11/25/20 [ Multivitamin Tablet] lamoTRIgine 100 mg PO DAILY 11/25/20 11/25/20 Previous Rx's Medication Instructions Recorded Albuterol Sulfate [Proair Hfa] 1 - 2 puff INHALATION Q4H PRN #1 10/24/20 inhaler Ciprofloxacin Ophth Soln [Ciloxan 2 drops LEFT EYE QID 5 Days #2.5 ml 11/22/20 0.3% Ophth Soln] Allergies Allergy/AdvReac Type Severity Reaction Status Date / Time latex Allergy Rash/Hives Verified 11/25/20 20:25 Penicillins Allergy Anaphylaxis Verified 11/25/20 20:25 ibuprofen AdvReac Nausea Verified 11/25/20 20:25 Review of Systems ROS Statement: Those systems with pertinent positive or pertinent negative responses have been documented in the HPI. ROS Other: All systems not noted in ROS Statement are negative. Past Medical History Past Medical History: Thyroid Disorder Additional Past Medical History / Comment(s): gestational diabetes, depression History of Any Multi-Drug Resistant Organisms: None Reported Past Surgical History: Section Past Anesthesia/Blood Transfusion Reactions: No Reported Reaction Additional Past Anesthesia/Blood Transfusion Reaction / Comment(s): Denies recieving a blood transfusion in the past Past Psychological History: Anxiety, Depression, PTSD Smoking Status: Never smoker Past Alcohol Use History: Rare Past Drug Use History: Marijuana - Past Family History Mother Family Medical History: Thyroid Disorder Father History Unknown: Yes Son(s) Family Medical History: No Reported History General Exam General appearance: alert Head exam: Present: atraumatic Eye exam: Present: normal appearance, PERRL, EOMI. Absent: scleral icterus ENT exam: Present: normal exam, mucous membranes moist Neck exam: Present: normal inspection, full ROM. Absent: tenderness Respiratory exam: Present: normal lung sounds bilaterally. Absent: respiratory distress, wheezes Cardiovascular Exam: Present: regular rate, normal rhythm, normal heart sounds GI/Abdominal exam: Present: soft, normal bowel sounds. Absent: distended, te nderness Neurological exam: Present: alert Course Vital Signs 11/25/20 11/25/20 20:21 22:57 Temperature 99.7 F H Pulse Rate 92 64 Respiratory 19 18 Rate Blood Pressure 132/84 129/79 O2 Sat by Pulse 98 100 Oximetry Medical Decision Making - Medical Decision Making Vitals are stable. Patient is well appearing. No significant abdominal tenderness. Patient states the bleeding has pretty much resolved. CBC is unremarkable with a hemoglobin of 13.8. CMP is unremarkable. Urinalysis does not show any obvious evidence of infection. No bacteria. Ultrasound did show a 2.7 x 1.5 cm complex fluid collection consistent with subchorionic hemorrhage on the right lateral and fundal aspect of the gestational sac that appears new compared to the old exam. It has increased in size. Patient does have an COMMUNICATION ANALYST in [place]. I did recommend pelvic exam however patient refuses at this time stating that her bleeding has stopped. At this time she will follow-up and return here for any worsening symptoms. - Lab Data Result diagrams: 11/25/20 21:46 11/25/20 21:46 Lab Results 11/25/20 11/25/20 11/25/20 Range/Units 21:46 21:46 21:46 WBC 14.9 H (3.8-10.6) k/uL RBC 4.24 (3.80-5.40) m/uL Hgb 13.8 (11.4-16.0) gm/dL Hct 40.8 (34.0-46.0) % MCV 96.1 (80.0-100.0) fL MCH 32.5 (25.0-35.0) pg MCHC 33.8 (31.0-37.0) g/dL RDW 14.3 (11.5-15.5) % Plt Count 318 (150-450) k/uL MPV 7.5 Neutrophils % 70 % Lymphocytes % 23 % Monocytes % 5 % Eosinophils % 1 % Basophils % 0 % Neutrophils # 10.4 H (1.3-7.7) k/uL Lymphocytes # 3.4 (1.0-4.8) k/uL Monocytes # 0.7 (0-1.0) k/uL Eosinophils # 0.2 (0-0.7) k/uL Basophils # 0.1 (0-0.2) k/uL Sodium 134 L (137-145) mmol/L Potassium 4.1 (3.5-5.1) mmol/L Chloride 103 (98-107) mmol/L Carbon Dioxide 24 (22-30) mmol/L Anion Gap 7 mmol/L BUN 18 H (7-17) mg/dL Creatinine 0.73 (0.52-1.04) mg/dL Est GFR (CKD-EPI)AfAm >90 (>60 ml/min/1.73 sqM) Est GFR (CKD-EPI)NonAf >90 (>60 ml/min/1.73 sqM) Glucose 82 (74-99) mg/dL Calcium 9.4 (8.4-10.2) mg/dL Total Bilirubin 0.1 L (0.2-1.3) mg/dL AST 23 (14-36) U/L ALT 17 (4-34) U/L Alkaline Phosphatase 56 (38-126) U/L Total Protein 7.0 (6.3-8.2) g/dL Albumin 4.2 (3.5-5.0) g/dL HCG, Quant 46622.1 mIU/mL Urine Color Yellow Urine Appearance Clear (Clear) Urine pH 6.5 (5.0-8.0) Ur Specific [place] 1.031 (1.001-1.035) Urine Protein Trace H (Negative) Urine Glucose (UA) Negative (Negative) Urine Ketones Negative (Negative) Urine Blood Moderate H (Negative) Urine Nitrite Negative (Negative) Urine Bilirubin Negative (Negative) Urine Urobilinogen <2.0 (<2.0) mg/dL Ur Leukocyte Esterase Negative (Negative) Urine RBC <1 (0-5) /hpf Urine WBC 2 (0-5) /hpf Ur Squamous Epith Cells 4 (0-4) /hpf Urine Mucus Rare H (None) /hpf Disposition Clinical Impression: Vaginal bleeding during , Threatened miscarriage Disposition: HOME SELF-CARE Instructions (If sedation given, give patient instructions): Threatened Miscarriage (ED) Additional Instructions: Please follow-up with your COMMUNICATION ANALYST first thing tomorrow morning. If you have worsening bleeding or lightheadedness return to the emergency room. Is patient prescribed a controlled substance at d/c from ED?: No Referrals: Hudson Wang MD [Primary Care Provider] - 1-2 days Time of Disposition: 23:54
--- NOTE | 2020-11-25 23:13 | US ---
EXAMINATION TYPE: Transabdominal DATE OF EXAM: 11/25/2020 11:01 PM COMPARISON: US CLINICAL HISTORY: pain. Pt states heavy vaginal bleeding EXAM PERFORMED: Transabdominal (TA) EXAM MEASUREMENTS: GESTATIONAL AGE / DATING Physician Established: Not yet established Dates by LMP: (8 weeks/2 days) EDC: 07/05/2021 Dates by First Scan: (7 weeks/4 days) EDC: 07/10/2021 Dates by Current Scan for: (8 weeks/0 days) EDC: 07/07/2021 MATERNAL ANATOMY Uterus: 12.0 x 7.7 x 8.8 cm Right Ovary: 1.8 x 2.0 x 2.2 cm Left Ovary: Obscured by overlying bowel gas Post CDS / Adnexa: wnl Presence of free fluid: No Presence of subchorionic bleed: Yes, posterior to gestational sac, has significantly increased in siz e when compared to previous= 4.1 x 2.0 x 2.7 cm GESTATION / SURVEY CRL: 1.7 cm (8 weeks/0 days) MSD: wnl Yolk Sac (normal less than 6mm): 3mm Heart Rate: 149 bpm Rhythm: Normal IUP: Viable IUP Single, viable IUP/ Subchorionic bleed has significantly increased in size when compared to previou s exam IMPRESSION: There is 2.7 x 1.5 cm complex fluid collection consistent with subchorionic hemorrhage on the right l ateral and fundal aspect of the gestational sac that appears new compared to old exam.
[2020-11-25 23:39] LABS: HCG,Quantitative Serum 73979.1 mIU/mL
== END 2020-11-26 00:22 | disposition home or self-care (01) ==
LOC: EC 19:53
DX: O20.0 Threatened abortion (principal); O99.341 Other mental disorders complicating pregnancy, first trimester; O99.321 Drug use complicating pregnancy, first trimester; F32.9 Major depressive disorder, single episode, unspecified; F41.9 Anxiety disorder, unspecified; F12.90 Cannabis use, unspecified, uncomplicated; Z88.6 Allergy status to analgesic agent; Z88.0 Allergy status to penicillin; Z91.040 Latex allergy status; Z3A.08 8 weeks gestation of pregnancy
CPT/HCPCS: 36415; 76801; 80053; 81001; 84702; 85025; 86900; 86901; 96360; 99284

== ENCOUNTER 2020-11-29 01:44 | Emergency (ER) | payer OTHER ==
[2020-11-29 01:51] VITALS: TEMP 98.3
--- NOTE | 2020-11-29 02:10 | ED ---
Female Urogenital HPI - General Source: patient, RN notes reviewed, old records reviewed Mode of arrival: ambulatory Limitations: no limitations - History of Present Illness Complaint: vaginal bleeding -: hour(s) Location: suprapubic Radiation: suprapubic Severity: mild Severity scale (1-10): 2 Quality: cramping Consistency: intermittent Improves with: none Worsens with: none Patient : Yes Associated Symptoms: vaginal bleeding - Related Data Sexually active: No (Patient is on pelvic rest for vaginal bleeding and ) <Andry Avelar - Last Filed: 11/29/20 05:21> <Andry Cali - Last Filed: 11/29/20 07:51> - General Chief complaint: Vaginal Bleeding Stated complaint: Vaginal bleeding, 9wks preg Time Seen by Provider: 11/29/20 01:49 - History of Present Illness Initial comments: This is a 30-year-old female to the ER for evaluation patient presents with significant anxiety over persistent vaginal bleeding of . She is a and she did have significant vaginal bleeding improved. She is well. Patient is a high risk patient secondary to thyroid disease. She presents today with no real significant abdominal pain multiple ER visits this month for vaginal bleeding. The bleeding site was maybe a little bit worse than prior but again no pain no clots and no tissue (Andry Avelar) - Related Data Home Medications Medication Instructions Recorded Confirmed Pnv No.95/Ferrous Fum/Folic AC 1 tab PO DAILY 07/13/19 11/25/20 [ Multivitamin Tablet] lamoTRIgine 100 mg PO DAILY 11/25/20 11/25/20 Previous Rx's Medication Instructions Recorded Albuterol Sulfate [Proair Hfa] 1 - 2 puff INHALATION Q4H PRN #1 10/24/20 inhaler Ciprofloxacin Ophth Soln [Ciloxan 2 drops LEFT EYE QID 5 Days #2.5 ml 11/22/20 0.3% Ophth Soln] Allergies Allergy/AdvReac Type Severity Reaction Status Date / Time latex Allergy Rash/Hives Verified 11/29/20 01:50 Penicillins Allergy Anaphylaxis Verified 11/29/20 01:50 ibuprofen AdvReac Nausea Verified 11/29/20 01:50 Review of Systems ROS Other: All systems not noted in ROS Statement are negative. <Andry Avelar - Last Filed: 11/29/20 05:21> ROS Other: All systems not noted in ROS Statement are negative. <VirajAndry - Last Filed: 11/29/20 07:51> ROS Statement: Those systems with pertinent positive or pertinent negative responses have been documented in the HPI. Past Medical History Past Medical History: Thyroid Disorder Additional Past Medical History / Comment(s): gestational diabetes, depression History of Any Multi-Drug Resistant Organisms: None Reported Past Surgical History: Section Past Anesthesia/Blood Transfusion Reactions: No Reported Reaction Additional Past Anesthesia/Blood Transfusion Reaction / Comment(s): Denies recieving a blood transfusion in the past Past Psychological History: Anxiety, Depression, PTSD Smoking Status: Former smoker Past Alcohol Use History: Rare Past Drug Use History: Marijuana - Past Family History Mother Family Medical History: Thyroid Disorder Father History Unknown: Yes Son(s) Family Medical History: No Reported History <Andry Avelar - Last Filed: 11/29/20 05:21> General Exam Limitations: no limitations General appearance: alert, in no apparent distress Head exam: Present: atraumatic, normocephalic, normal inspection Eye exam: Present: normal appearance, PERRL, EOMI. Absent: scleral icterus, conjunctival injection, periorbital swelling ENT exam: Present: normal exam, mucous membranes moist Neck exam: Present: normal inspection. Absent: tenderness, meningismus, lymphadenopathy Respiratory exam: Present: normal lung sounds bilaterally. Absent: respiratory distress, wheezes, rales, rhonchi, stridor Cardiovascular Exam: Present: regular rate, normal rhythm, normal heart sounds. Absent: systolic murmur, diastolic murmur, rubs, gallop, clicks GI/Abdominal exam: Present: soft, normal bowel sounds. Absent: distended, tenderness, guarding, rebound, rigid Extremities exam: Present: normal inspection, full ROM, normal capillary refill. Absent: tenderness, pedal edema, joint swelling, calf tenderness Back exam: Present: normal inspection Neurological exam: Present: alert, oriented X3, CN II-XII intact Psychiatric exam: Present: normal affect, normal mood Skin exam: Present: warm, dry, intact, normal color. Absent: rash <Andry Avelar - Last Filed: 11/29/20 05:21> Course <Andry Avelar - Last Filed: 11/29/20 05:21> Vital Signs 11/29/20 11/29/20 11/29/20 01:45 04:51 06:00 Temperature 98.3 F Pulse Rate 93 74 75 Respiratory 20 18 16 Rate Blood Pressure 97/68 97/59 102/96 O2 Sat by Pulse 98 97 97 Oximetry - Reevaluation(s) Reevaluation #1: 11/29/20 05:22 Medical record is reviewed (Andry Avelar) Reevaluation #2: 11/29/20 05:22 Prior ER visits of also been reviewed including patient's lab values and ultrasound (Andry Avelar) Reevaluation #3: 11/29/20 05:22 Patient does not fill comfortable going home and that she knows outcome of p regnancy, patient wants ultrasound (Andry Avelar) Medical Decision Making - Lab Data Result diagrams: 11/29/20 02:39 <Andry Avelar - Last Filed: 11/29/20 05:21> - Lab Data Result diagrams: 11/29/20 02:39 <Andry Cali - Last Filed: 11/29/20 07:51> - Medical Decision Making Ultrasound shows an intrauterine heart rates 158 it's measuring 8 weeks 6 days (Andry Cali) - Lab Data Lab Results 11/29/20 11/29/20 11/29/20 Range/Units 02:39 02:39 02:39 WBC 15.5 H (3.8-10.6) k/uL RBC 4.11 (3.80-5.40) m/uL Hgb 13.3 (11.4-16.0) gm/dL Hct 39.2 (34.0-46.0) % MCV 95.4 (80.0-100.0) fL MCH 32.4 (25.0-35.0) pg MCHC 34.0 (31.0-37.0) g/dL RDW 14.5 (11.5-15.5) % Plt Count 316 (150-450) k/uL MPV 7.0 Neutrophils % 70 % Lymphocytes % 24 % Monocytes % 4 % Eosinophils % 1 % Basophils % 0 % Neutrophils # 10.8 H (1.3-7.7) k/uL Lymphocytes # 3.7 (1.0-4.8) k/uL Monocytes # 0.6 (0-1.0) k/uL Eosinophils # 0.2 (0-0.7) k/uL Basophils # 0.1 (0-0.2) k/uL HCG, Quant 62801.0 mIU/mL Urine Color Yellow Urine Appearance Cloudy H (Clear) Urine pH 5.5 (5.0-8.0) Ur Specific [place] 1.030 (1.001-1.035) Urine Protein Trace H (Negative) Urine Glucose (UA) Negative (Negative) Urine Ketones Trace H (Negative) Urine Blood Negative (Negative) Urine Nitrite Negative (Negative) Urine Bilirubin Negative (Negative) Urine Urobilinogen <2.0 (<2.0) mg/dL Ur Leukocyte Esterase Trace H (Negative) Urine RBC 1 (0-5) /hpf Urine WBC 4 (0-5) /hpf Ur Squamous Epith Cells 8 H (0-4) /hpf Urine Mucus Rare H (None) /hpf Disposition <Andry Avelar - Last Filed: 11/29/20 05:21> Is patient prescribed a controlled substance at d/c from ED?: No Time of Disposition: 07:51 <Andry Cali - Last Filed: 11/29/20 07:51> Clinical Impression: Threatened Disposition: HOME SELF-CARE Instructions (If sedation given, give patient instructions): Threatened Miscarriage (ED) Referrals: Hudson Wang MD [Primary Care Provider] - 1-2 days
[2020-11-29 03:20] LABS: Basophils # (A) 0.1 k/uL (0-0.2); Basophils % (A) 0 %; Eosinophils # (A) 0.2 k/uL (0-0.7); Eosinophils % (A) 1 %; HCT 39.2 % (34.0-46.0); HGB 13.3 gm/dL (11.4-16.0); Lymphocytes # (A) 3.7 k/uL (1.0-4.8); Lymphocytes % (A) 24 %; MCH 32.4 pg (25.0-35.0); MCV 95.4 fL (80.0-100.0); Monocytes # (A) 0.6 k/uL (0-1.0); Monocytes % (A) 4 %; Neutrophils # (A) 10.8 k/uL (1.3-7.7); Neutrophils % (A) 70 %; Platelet Count 316 k/uL (150-450); RBC 4.11 m/uL (3.80-5.40); RDW 14.5 % (11.5-15.5); WBC 15.5 k/uL (3.8-10.6)
[2020-11-29 03:25] LABS: Appearance,Urine Cloudy (Clear); Bilirubin,Urine Negative (Negative); Blood,Urine Negative (Negative); Color,Urine Yellow; Glucose,Urine (UA) Negative (Negative); Ketones,Urine Trace (Negative); Leukocyte Esterase,Urine Trace (Negative); Mucus,Urine Rare /hpf; Nitrite,Urine Negative (Negative); PH, Urine 5.5 (5.0-8.0); Protein,Urine Trace (Negative); RBC,Urine 1 /hpf (0-5); Squamous Epithelial Cell,Urine 8 /hpf (0-4); Urobilinogen,Urine <2.0 mg/dL (<2.0); WBC,Urine 4 /hpf (0-5)
[2020-11-29 07:05] VITALS: RESP 16
--- NOTE | 2020-11-29 07:39 | US ---
EXAMINATION TYPE: Ultrasound OB <= 14 week fetus DATE OF EXAM: 11/29/2020 7:09 AM COMPARISON: 11/25/2020 CLINICAL HISTORY: 30-year-old female . Spotting. Hx subchorionic bleed per previous ultraso unds. EXAM PERFORMED: Transabdominal (TA) FINDINGS: EXAM MEASUREMENTS: GESTATIONAL AGE / DATING Dates by LMP: (8 weeks/6 days) EDC: 07/05/2021 Dates by Current Scan for: (8 weeks/2 days +/- 5 days) (2 days less growth than expected compared to 11/25/2020) EDC: 07/09/2021 MATERNAL ANATOMY Uterus: 12.7 x 9.0 x 7.0 cm Right Ovary: 3.1 x 1.6 x 2.0 cm Left Ovary: 3.1 x 2.1 x 2.3 cm Post CDS / Adnexa: no free fluid Presence of free fluid: no Presence of corpus luteal cyst: left ovary = 2.2 x 2.2 x 2.0 cm Presence of subchorionic bleed: 3.0 x 1.5 x 1.6 cm (versus 4.1 x 2.7 x 2.0 cm, previously. Now mostly located along the left lateral aspect). GESTATION / SURVEY CRL: 1.8 cm (8 weeks/2 days) MSD: seen, not measured Yolk Sac (normal less than 6mm): 2.7 mm Heart Rate: 158 bpm Rhythm: Normal IUP: Viable IUP Date of LMP: 09/28/2020, Beta HcG (if available): Not available at this time Hand [employer] notes: Single live IUP measuring 8 weeks 2 days. IMPRESSION: 1. Single intrauterine with estimated gestational age of 8 weeks 6 days by LMP. Current ult rasound biometry is smaller concordant (8 weeks 2 days) by CRL. 2. Decreasing size of the perigestational bleed currently measuring 3.0 x 1.6 cm (versus 4.1 x 2.7 cm , previously) and now located mainly along the left lateral aspect of the sac. 3. Additional short interval follow-up as clinically indicated. Otherwise, complete survey woody mmended at 18-20 weeks.
[2020-11-29 08:01] VITALS: BP 98/62; PULSE 88
== END 2020-11-29 08:05 | disposition home or self-care (01) ==
LOC: EC 01:44
DX: O20.0 Threatened abortion (principal); O99.321 Drug use complicating pregnancy, first trimester; F12.90 Cannabis use, unspecified, uncomplicated; O99.341 Other mental disorders complicating pregnancy, first trimester; F32.9 Major depressive disorder, single episode, unspecified; F41.9 Anxiety disorder, unspecified; Z87.891 Personal history of nicotine dependence; Z3A.08 8 weeks gestation of pregnancy
CPT/HCPCS: 36415; 76801; 81001; 84702; 85025; 99284

== ENCOUNTER 2021-12-22 12:05 | Outpatient (CLI) | payer OTHER ==
[2021-12-22 13:58] VITALS: BP 101/67; PULSE 109; RESP 18; TEMP 98.1
--- NOTE | 2021-12-23 01:10 | P.MSEPDOC ---
Presenting Problems - Arrival Data Date of Arrival on Unit: 12/22/21 Time of Arrival on Unit: 12:05 Mode of Transport: Ambulatory - Complaint OB-Reason for Admission/Chief Complaint: Possible Onset of Labor Comment: pt states contractions closer together since 0900 this morning. Medical History - Information : 5 Para: 2 Term: 1 : 1 Abortions: Spontaneous or Elective: 2 Number of Living Children: 2 - Gestational Age Gestational Age by CE (wks/days): 35 Weeks and 2 Days - History Sexually Transmitted Diseases: HSV Review of Systems - Review of Systems Constitutional: No problems Breast: No problems ENT: No problems Cardiovascular: No problems Respiratory: No problems Gastrointestinal: No problems Genitourinary: No problems Musculoskeletal: No problems Neurological: No problems Skin: No problems Vital Signs - Temperature Temperature: 98.1 F Temperature Source: Temporal Artery Scan - Pulse Right Pulse Oximetery Pulse Rate: 109 Pulse Assessment Method: Pulse Oximetry - Respirations Respiratory Rate: 18 Oxygen Delivery Method: Room Air O2 Sat by Pulse Oximetry: 98 - Blood Pressure Right Arm Blood Pressure: 101/67 Blood Pressure Mean: 78 Blood Pressure Source: Automatic Cuff Medical Screen Scoring - Cervical Exam Dilation (cm): 1.5 Effacement (%): 50 Station: -4 Membranes: Intact - Uterine Contractions Frequency From (mins): 10 Frequency To (mins): 12 Duration From (seconds): 50 Duration To (seconds): 60 Intensity: Mild Resting: Soft to palpation - Assessment - Baby A Baseline FHR: 130 Heart Rate - NICHD Category: Category I (Normal) NST: Reactive Physician Notification - Physician Notified Physician Notified Date: 12/22/21 Physician Notified Time: 13:30 Physician: Bhargavi Ramos Order Received: Yes - Notification Comment Comment: okay to discharge patient home. contractions > 10 minutes apart, cervical exam wnl Maternal Triage Index - Maternal Triage Index Presenting for scheduled procedure w/no complaint: No - Stat/Priority 1 Stat Priority 1: No - Urgent/Priority 2 Urgent Priority 2: No - Prompt/Priority 3 Prompt Priority 3: Yes Criteria Met for Priority 3: C/O early labor signs 35 2/7 weeks Disposition - Disposition OB Disposition: Discharge to home Discharge Date: 12/22/21 Discharge Time: 13:50 I agree with the RN Medical Screening Exam: Yes Case reviewed; plan agreed upon as documented in EMR&OBIX.: Yes Diagnosis: FALSE LABOR BEFORE 37 COMPLETED WEEKS OF GEST, THIRD TRI
== END 2021-12-22 13:50 | disposition home or self-care (01) ==
LOC: FBPOP 12:05
PROVIDERS: ATTEND Obstetrics & Gynecology
DX: O47.03 False labor before 37 completed weeks of gestation, third trimester (principal); Z3A.35 35 weeks gestation of pregnancy; Z88.0 Allergy status to penicillin; Z88.6 Allergy status to analgesic agent; Z91.040 Latex allergy status
CPT/HCPCS: 59025; G0463; 99213

== ENCOUNTER 2022-01-15 06:04 | Inpatient (IN) | payer OTHER ==
[2022-01-15] MEDS ORDERED: METHYLERGONOVINE 0.2 MG/ML 1 ML AMP IM PRN (06:38)
[2022-01-15] MEDS ORDERED: CITRIC ACID-SODIUM CITRATE 15 ML CUP PO ONE (06:38)
[2022-01-15] MEDS ORDERED: OXYTOCIN 10 UNIT/ML 1 ML VIAL IM PRN (06:38)
[2022-01-15] MEDS ORDERED: TERBUTALINE 1 MG/ML VIAL SQ PRN (06:38)
[2022-01-15] MEDS ORDERED: CARBOPROST TROMETHAMINE 250 MCG/ML 1 ML AMP IM PRN (06:38)
[2022-01-15] MEDS ORDERED: LACTATED RINGERS 1,000 ML IV SCH (06:45)
[2022-01-15 07:18] LABS: Anisocytosis Slight; Basophils % (A) 0 %; Eosinophils # (A) 0.2 k/uL (0-0.7); Eosinophils % (A) 1 %; HCT 33.1 % (34.0-46.0); HGB 10.4 gm/dL (11.4-16.0); Hypochromasia Moderate; Lymphocytes # (A) 2.2 k/uL (1.0-4.8); Lymphocytes % (A) 18 %; MCH 25.5 pg (25.0-35.0); MCHC 31.4 g/dL (31.0-37.0); MCV 81.4 fL (80.0-100.0); Mean Platelet Volume 7.6; Monocytes # (A) 0.7 k/uL (0-1.0); Monocytes % (A) 6 %; Neutrophils % (A) 73 %; Platelet Count 264 k/uL (150-450); Poikilocytosis Slight; RBC 4.07 m/uL (3.80-5.40); RDW 16.2 % (11.5-15.5); WBC 12.4 k/uL (3.8-10.6)
--- NOTE | 2022-01-15 07:21 | P.HPOB ---
History of Present Illness H&P Date: 01/15/22 Chief Complaint: repeat low transverse with tubal ligation 31 year old presents at 39 weeks for repeat low transverse with tubal ligation. Review of Systems All systems: negative Constitutional: Denies chills, Denies fever Eyes: denies blurred vision, denies pain Ears, nose, mouth and throat: Denies headache, Denies sore throat Cardiovascular: Denies chest pain, Denies shortness of breath Respiratory: Denies cough Gastrointestinal: Denies abdominal pain, Denies diarrhea, Denies nausea, Denies vomiting Genitourinary: Denies dysuria, Denies hematuria Musculoskeletal: Denies myalgias Integumentary: Denies pruritus, Denies rash Neurological: Denies numbness, Denies weakness Psychiatric: Denies anxiety, Denies depression Endocrine: Denies fatigue, Denies weight change Past Medical History Past Medical History: Thyroid Disorder Additional Past Medical History / Comment(s): gestational diabetes, depression History of Any Multi-Drug Resistant Organisms: None Reported Past Surgical History: Section Past Anesthesia/Blood Transfusion Reactions: No Reported Reaction Additional Past Anesthesia/Blood Transfusion Reaction / Comment(s): Denies recieving a blood transfusion in the past Smoking Status: Never smoker - Past Family History Mother Family Medical History: Thyroid Disorder Father History Unknown: Yes Son(s) Family Medical History: No Reported History Medications and Allergies Home Medications Medication Instructions Recorded Confirmed Type Levothyroxine Sodium [Synthroid] 100 mcg PO DAILY 12/22/21 01/15/22 History Vit No.179/Iron/Folic 1 each PO DAILY 12/22/21 01/15/22 History [ Tablet] Allergies Allergy/AdvReac Type Severity Reaction Status Date / Time latex Allergy Rash/Hives Verified 01/15/22 06:37 Penicillins Allergy Anaphylaxis, Verified 01/15/22 06:37 hives all over body ibuprofen AdvReac Nausea Verified 01/15/22 06:37 Exam Osteopathic Statement: *. No significant issues noted on an osteopathic structural exam other than those noted in the History and Physical/Consult. Intake and Output 01/14/22 01/15/22 01/15/22 22:59 06:59 14:59 Other: Weight 121.563 kg Heart: Regular rate and rhythm Lungs: Clear to auscultation bilaterally Abdomen: Soft, nontender Extremities: Negative Homans sign Results Result Diagrams: 01/15/22 06:30 Abnormal Lab Results - Last 24 Hours (Table) 01/15/22 Range/Units 06:30 WBC 12.4 H (3.8-10.6) k/uL Hgb 10.4 L (11.4-16.0) gm/dL Hct 33.1 L (34.0-46.0) % RDW 16.2 H (11.5-15.5) % Neutrophils # 9.0 H (1.3-7.7) k/uL Assessment and Plan (1) Previous section Current Visit: Yes Status: Acute Code(s): Z98.891 - HISTORY OF UTERINE SCAR FROM PREVIOUS SURGERY SNOMED Code(s): 042090224 (2) Family planning Current Visit: Yes Status: Acute Code(s): Z30.09 - ENCOUNTER FOR OT GENERAL CNSL AND ADVICE ON CONTRACEPTION SNOMED Code(s): 769180804 Plan: 1. Repeat low transverse with tubal ligation
[2022-01-15 11:15] LABS: Glucose,Whole Blood 89 mg/dL (70-110)
[2022-01-15] MEDS: LACTATED RINGERS 1,000 ML IV SCH (11:17)
[2022-01-15] MEDS ORDERED: PHENYLEPHRINE-0.9% NACL SYG 1,000 MCG/10 ML SYRINGE ONE (11:52)
[2022-01-15] MEDS ORDERED: MORPHINE SULFATE (PF) 0.3 MG/0.3 ML SYR ONE (11:52)
[2022-01-15] MEDS ORDERED: KETOROLAC 30 MG/ML 1 ML VIAL ONE (11:52)
[2022-01-15] MEDS ORDERED: OXYTOCIN 30 UNITS/500 ML NS BAG IV ONE (11:52)
[2022-01-15] MEDS ORDERED: ePHEDrine 50 MG/ML 1 ML VIAL ONE (11:52)
[2022-01-15] MEDS ORDERED: ONDANSETRON 4 MG/2 ML VIAL ONE (11:52)
[2022-01-15] MEDS ORDERED: NALBUPHINE 10 MG/ML (1 ML AMP) ONE (11:52)
[2022-01-15] MEDS ORDERED: NALOXONE 0.4 MG/ML 1 ML VIAL IV PRN (12:41)
[2022-01-15] MEDS ORDERED: ONDANSETRON 4 MG/2 ML VIAL IVP PRN (12:41)
[2022-01-15] MEDS ORDERED: SIMETHICONE 80 MG CHEWABLE PO PRN (12:41)
[2022-01-15] MEDS ORDERED: LANOLIN CREAM 5 GM TUBE TOPICAL PRN (12:41)
[2022-01-15] MEDS ORDERED: ZOLPIDEM 5 MG TAB PO PRN (12:41)
[2022-01-15] MEDS ORDERED: diphenhydrAMINE 50 MG/ML 1 ML VIAL IVP PRN ×2 (12:41)
[2022-01-15] MEDS ORDERED: diphenhydrAMINE 25 MG CAP PO PRN (12:41)
[2022-01-15] MEDS ORDERED: diphenhydrAMINE 50 MG CAP PO PRN (12:41)
[2022-01-15] MEDS ORDERED: OXYTOCIN 30 UNITS/500 ML NS 30 UNIT in SALINE 1 500ML.BAG IV SCH (12:45)
--- NOTE | 2022-01-15 12:46 | P.OP ---
Date of Procedure: 01/15/22 Preoperative Diagnosis: 1. 39 weeks gestation 2. Previous 3. Family planning 4. Gestational diabetes Postoperative Diagnosis: Same Procedure(s) Performed: Repeat low transverse with tubal ligation Anesthesia: spinal Surgeon: Radha Christianson Motor Teacher #1: Russell Mccarthy Estimated Blood Loss (ml): 317 IV fluids (ml): 700 Urine output (ml): 100 Pathology: other (Placenta, segment of bilateral fallopian tubes) Operative Findings: Normal uterus, tubes, ovaries. Viable male, Apgars 9, 9, weight 9 lbs. 9 oz. Description of Procedure: Patient was taken to the operating room where spinal anesthesia was found be adequate. She was prepped and draped in normal sterile fashion in dorsal supine position with a leftward tilt. Pfannenstiel skin incision was made the scalpel and carried through to the underlying layer of fascia with the scalpel. Fascia was incised in midline and carried bilaterally with the Hicks scissors. The superior aspect of the fascial incision was grasped with Ning clamps elevated and the underlying rectus muscles dissected off with the Hicks's. Attention was then turned to inferior aspect of same incision which in a similar fashion was grasped tented up and the underlying rectus muscles dissected off with the Hicks's. The rectus muscles were the midline and the peritoneum was identified tented up and entered sharply with the scalpel. The incision was extended superiorly and inferiorly with good visualization of the bladder. The bladder blade was inserted and the vesicouterine peritoneum was incised the Metzenbaums then carried bilaterally and bladder flap created digitally. A low transverse incision was then made on the uterus with the scalpel. This was carried bilaterally and digital manner. 's head delivered atraumatically, nose and mouth bulb suctioned, cord clamped and cut, handed off to waiting nurses. Apgars 9,9, weight 9 lbs. 9 oz. Placenta delivered manually, intact with three-vessel cord. The uterus is exteriorized and cleared of all clots and debris. The uterine incision was closed with 0 Vicryl in a running locked fashion. Second layer of the same sutures used in imbricating fashion to obtain excellent hemostasis. Both ovaries and tubes appeared normal. The right fallopian tube was grasped with hemostat and a window was made in the mesosalpinx with the Bovie. The right fallopian tube was doubly ligated and a segment was removed. The pedicles were cauterized with the Bovie. The left fallopian tube was grasped with a hemostat and a window was made in the mesosalpinx with the Bovie. The left fallopian tube was doubly ligated and a segment was removed. The pedicles were cauterized with the Bovie. The uterus was placed back into the abdomen. The peritoneum was reapproximated using 2-0 Vicryl in a running fashion. The muscles were reapproximated using 2-0 Vicryl in interrupted fashion. The fascia was reapproximated using 0 Vicryl in a running fashion. The subcutaneous tissues closed with 3-0 Vicryl running fashion. The skin was closed mj. Patient tolerated the procedure well, sponge and instrument counts were correct times 2 and she was taken to the recovery room in stable condition.
[2022-01-15] MEDS: METOCLOPRAMIDE 5 MG/ML 2 ML VIAL IVP PRN ×2 (13:24→19:53)
[2022-01-15] MEDS: ACETAMINOPHEN TAB 500 MG TAB PO SCH (21:20)
[2022-01-15] MEDS: KETOROLAC 15 MG/ML 1 ML VIAL IVP SCH (21:21)
[2022-01-15] MEDS: SENNOSIDES-DOCUSATE SODIUM 1 EACH TAB PO SCH (21:24)
[2022-01-16] MEDS ORDERED: MEASLES-MUMPS-RUBELLA VACC/PF 12,500 UNIT/0.5 ML VIAL SQ ONE (00:30)
[2022-01-16] MEDS: LACTATED RINGERS 1,000 ML IV SCH ×5 (02:47→19:23)
[2022-01-16] MEDS: ACETAMINOPHEN TAB 500 MG TAB PO SCH ×4 (02:48→20:03)
[2022-01-16] MEDS: KETOROLAC 15 MG/ML 1 ML VIAL IVP SCH ×3 (02:57→16:56)
[2022-01-16 06:25] LABS: Anisocytosis Slight; Basophils % (A) 0 %; Eosinophils # (A) 0.1 k/uL (0-0.7); Eosinophils % (A) 0 %; HCT 30.7 % (34.0-46.0); HGB 9.8 gm/dL (11.4-16.0); Hypochromasia Marked; Lymphocytes # (A) 1.4 k/uL (1.0-4.8); Lymphocytes % (A) 11 %; MCH 26.5 pg (25.0-35.0); MCV 82.9 fL (80.0-100.0); Mean Platelet Volume 7.8; Monocytes # (A) 0.8 k/uL (0-1.0); Monocytes % (A) 6 %; Neutrophils # (A) 10.9 k/uL (1.3-7.7); Neutrophils % (A) 81 %; Platelet Count 239 k/uL (150-450); RDW 16.1 % (11.5-15.5); WBC 13.4 k/uL (3.8-10.6)
--- NOTE | 2022-01-16 08:03 | P.PN ---
Progress Note - Text Date: 01/16/2022 Time: 07:15 The patient is status post section Vital signs stable VAS: 0-10 Patient has no complaints of pain. The patient incurred some minimal itching yesterday, this itching is now subsiding. Pain meds to be managed by service.
[2022-01-16] MEDS: SENNOSIDES-DOCUSATE SODIUM 1 EACH TAB PO SCH ×2 (08:07→20:04)
--- NOTE | 2022-01-16 08:46 | P.PNOBGPC ---
Subjective - Subjective Principal diagnosis: S/P repeat low transverse with tubal ligation Interval history: Patient seen and examined. Denies nausea, vomiting, chest pain, shortness breath or calf pain. She did have some vomiting yesterday but is tolerating regular diet today. Patient reports: Reports appetite normal, Reports voiding normally, Reports pain well controlled, Reports ambulating normally [place]: doing well Objective - Vital Signs Latest vital signs: Vital Signs Temp Pulse Resp BP Pulse Ox 01/16/22 04:00 98.3 F 77 18 100/62 98 01/16/22 00:00 97.9 F 76 18 117/69 97 01/15/22 20:00 97.2 F L 85 18 102/58 97 01/15/22 16:00 96.8 F L 103 H 16 128/66 99 01/15/22 14:36 96.2 F L 67 15 99/56 96 01/15/22 14:11 96.2 F L 58 L 16 91/50 97 01/15/22 13:41 96.0 F L 67 16 96 01/15/22 13:26 77 16 85/52 93 L 01/15/22 13:11 76 16 94/60 96 01/15/22 12:56 69 16 89/54 95 01/15/22 12:54 1 L 01/15/22 12:41 96.6 F L 90 16 91/50 96 Intake and Output 01/15/22 01/16/22 01/16/22 22:59 06:59 14:59 Output Total 300 600 Balance -300 -600 Output: Urine 300 600 Straight 300 Other: Voiding Method Indwelling Catheter # Voids 1 - Exam Lungs: bilateral: normal Chest: Normal S1, Normal S2 Extremities: Present: normal Abdomen: Present: normal appearance, soft. Absent: distention, tenderness Incision: Present: normal, dry, intact Uterus: Present: normal, firm - Labs Labs: Abnormal Lab Results - Last 24 Hours (Table) 01/16/22 Range/Units 05:56 WBC 13.4 H (3.8-10.6) k/uL RBC 3.70 L (3.80-5.40) m/uL Hgb 9.8 L (11.4-16.0) gm/dL Hct 30.7 L (34.0-46.0) % RDW 16.1 H (11.5-15.5) % Neutrophils # 10.9 H (1.3-7.7) k/uL Assessment and Plan (1) Previous section Current Visit: Yes Status: Resolved Code(s): Z98.891 - HISTORY OF UTERINE SCAR FROM PREVIOUS SURGERY SNOMED Code(s): 536268642 (2) Family planning Current Visit: Yes Status: Resolved Code(s): Z30.09 - ENCOUNTER FOR OT GENERAL CNSL AND ADVICE ON CONTRACEPTION SNOMED Code(s): 911552456 (3) Status post repeat low transverse section Current Visit: Yes Status: Acute Code(s): Z98.891 - HISTORY OF UTERINE SCAR FROM PREVIOUS SURGERY SNOMED Code(s): 057885913 Plan: 1. Increase ambulation 2. Pain control 3. Regular diet
[2022-01-16 15:30] VITALS: RESP 16
[2022-01-17] MEDS: ACETAMINOPHEN TAB 500 MG TAB PO SCH ×3 (05:15→09:03)
--- NOTE | 2022-01-17 08:50 | P.DS ---
Providers Date of admission: 01/15/22 06:04 Expected date of discharge: 01/17/22 Attending physician: Radha Christianson Primary care physician: Stated None - Discharge Diagnosis(es) (1) Previous section Current Visit: Yes Status: Resolved (2) Family planning Current Visit: Yes Status: Resolved (3) Status post repeat low transverse section Current Visit: Yes Status: Acute Hospital Course: Patient presented for a repeat low transverse and tubal ligation. She underwent this procedure without complication. Postoperative course was uneventful. She denies nausea, vomiting, chest pain, shortness of breath or any calf pain. Incision is clean, dry, intact. Patient will be discharged home day #2 in stable condition to follow-up with me in one week. Plan - Discharge Summary New Discharge Prescriptions: New oxyCODONE HCL [OxyIR] 5 mg PO Q4HR PRN #18 tab PRN Reason: Pain Scale 4 - 6 No Action Levothyroxine Sodium [Synthroid] 100 mcg PO DAILY Vit No.179/Iron/Folic [ Tablet] 1 each PO DAILY Discharge Medication List Levothyroxine Sodium [Synthroid] 100 mcg PO DAILY 12/22/21 [History] Vit No.179/Iron/Folic [ Tablet] 1 each PO DAILY 12/22/21 [History] oxyCODONE HCL [OxyIR] 5 mg PO Q4HR PRN #18 tab 01/17/22 [Rx] Follow up Appointment(s)/Referral(s): Radha Christianson DO [Doctor of Osteopathic Medicine] - 03/03/22 11:15 am (Post op appointment 01-27-22 @ 09:00a.m.) Discharge Disposition: HOME SELF-CARE
[2022-01-17 11:10] VITALS: BP 129/71; PULSE 79; TEMP 98.1
== END 2022-01-17 17:30 | disposition home or self-care (01) | DRG 785 ==
LOC: 4FBP 06:04
PROVIDERS: ADMIT Obstetrics & Gynecology; ATTEND Obstetrics & Gynecology
PROC: 10D00Z1 Extraction of Products of Conception, Low, Open Approach (ICD-10-PCS; principal; 2022-01-15 08:00)
PROC: 0UB70ZZ Excision of Bilateral Fallopian Tubes, Open Approach (ICD-10-PCS; principal; 2022-01-15 08:00)
DX: O34.211 Maternal care for low transverse scar from previous cesarean delivery (principal); O24.429 Gestational diabetes mellitus in childbirth, unspecified control; Z30.2 Encounter for sterilization; Z37.0 Single live birth; Z3A.39 39 weeks gestation of pregnancy; Z79.890 Hormone replacement therapy; Z88.6 Allergy status to analgesic agent; Z91.040 Latex allergy status; Z91.010 Allergy to peanuts; Z28.311 Partially vaccinated for COVID-19; Z28.21 Immunization not carried out because of patient refusal
CPT/HCPCS: 85025; 86850; 86900; 86901; 88302; 90707

== ENCOUNTER → 2022-06-25 | Outpatient (CLI) | payer OTHER ==
--- NOTE | 2022-06-25 15:15 | XR ---
EXAMINATION TYPE: XR wrist complete LT DATE OF EXAM: 06/25/2022 CLINICAL HISTORY: pain TECHNIQUE: Frontal, lateral and oblique images of the left wrist are obtained. COMPARISON: None. FINDINGS: There is no acute fracture/dislocation evident. The joint spaces appear within normal mcgee its. The overlying soft tissue appears unremarkable. IMPRESSION: There is no acute fracture or dislocation seen. ICD 10 NO FRACTURE, INITIAL EVALUATION
--- NOTE | 2022-06-25 15:16 | XR ---
EXAMINATION TYPE: XR hand complete LT DATE OF EXAM: 06/25/2022 CLINICAL HISTORY: pain TECHNIQUE: Frontal, lateral and oblique images of the left hand are obtained. COMPARISON: None. FINDINGS: There is no acute fracture/dislocation evident. The joint spaces appear within normal limi ts. The overlying soft tissue appears unremarkable. IMPRESSION: There is no acute fracture or dislocation. ICD 10 NO FRACTURE, INITIAL EVALUATION
== END | disposition home or self-care (01) ==
LOC: RADXRMAIN 14:46
PROVIDERS: ATTEND Emergency Medicine
DX: S63.502A Unspecified sprain of left wrist, initial encounter (principal); S63.602A Unspecified sprain of left thumb, initial encounter; X58.XXXA Exposure to other specified factors, initial encounter

== ENCOUNTER 2022-08-29 13:18 | Emergency (ER) | payer OTHER ==
[2022-08-29] MEDS ORDERED: Acetaminophen-Codeine 300-30mg TAB PO STA (14:00)
--- NOTE | 2022-08-29 14:19 | ED ---
Lower Extremity Injury HPI - General Chief Complaint: Extremity Injury, Lower Stated Complaint: Right ankle injury Time Seen by Provider: 08/29/22 13:30 Source: patient, RN notes reviewed Mode of arrival: ambulatory Limitations: no limitations - History of Present Illness Initial Comments: This is a 31-year-old female who presents to the emergency department for a right ankle injury. States that yesterday she sprained her ankle by stepping on wet grass at work. The pain has not worsened, however it has not improved since yesterday. She's taken Tylenol with no relief in symptoms. She is still able to walk. Denies any fevers, chills, sore throat, cough, dyspnea, chest pain, palpitations, abdominal pain, nausea, vomiting, diarrhea, back pain, or headaches. MD Complaint: ankle injury Onset/Timin -: days(s) - Related Data Home Medications Medication Instructions Recorded Confirmed Levothyroxine Sodium [Synthroid] 100 mcg PO DAILY 12/22/21 01/15/22 Vit No.179/Iron/Folic 1 each PO DAILY 12/22/21 01/15/22 [ Tablet] Previous Rx's Medication Instructions Recorded oxyCODONE HCL [OxyIR] 5 mg PO Q4HR PRN #18 tab 01/17/22 Allergies Allergy/AdvReac Type Severity Reaction Status Date / Time latex Allergy Rash/Hives Verified 08/29/22 13:28 Penicillins Allergy Anaphylaxis, Verified 08/29/22 13:28 hives all over body ibuprofen AdvReac Nausea Verified 08/29/22 13:28 Review of Systems ROS Statement: Those systems with pertinent positive or pertinent negative responses have been documented in the HPI. ROS Other: All systems not noted in ROS Statement are negative. Past Medical History Past Medical History: Thyroid Disorder Additional Past Medical History / Comment(s): gestational diabetes, depression History of Any Multi-Drug Resistant Organisms: None Reported Past Surgical History: Section Past Anesthesia/Blood Transfusion Reactions: Postoperative Nausea & Vomiting (PONV) Additional Past Anesthesia/Blood Transfusion Reaction / Comment(s): Denies recieving a blood transfusion in the past Past Psychological History: Anxiety, Depression, PTSD Smoking Status: Former smoker Past Alcohol Use History: Rare Past Drug Use History: Marijuana - Past Family History Mother Family Medical History: Thyroid Disorder Father History Unknown: Yes Son(s) Family Medical History: No Reported History General Exam Limitations: no limitations General appearance: alert, in no apparent distress Head exam: Present: atraumatic, normocephalic, normal inspection Respiratory exam: Present: normal lung sounds bilaterally. Absent: respiratory distress, wheezes, rales, rhonchi, stridor Cardiovascular Exam: Present: regular rate, normal rhythm, normal heart sounds. Absent: systolic murmur, diastolic murmur, rubs, gallop, clicks Extremities exam: Present: other (Tenderness to palpation over the right lateral malleolus. Limited passive range of motion of secondary to pain. 2+ DP and PT pulses and capillary refill less than 1 second.) Neurological exam: Present: alert, oriented X3, CN II-XII intact Psychiatric exam: Present: normal affect, normal mood Skin exam: Present: warm, dry, intact, normal color. Absent: rash Course Vital Signs 08/29/22 08/29/22 13:26 15:01 Temperature 98.0 F 98 F Pulse Rate 84 69 Respiratory 20 16 Rate Blood Pressure 116/76 109/65 O2 Sat by Pulse 98 98 Oximetry Medical Decision Making - Medical Decision Making This is a 31-year-old female who presents to the emergency department for right ankle pain. Was pt. sent in by a medical professional or institution? @ -No Did you speak to anyone other than the patient for history? @ -No Did you review nursing and triage notes? @ -Yes, and I agree, it is accurate with regards to the patient's symptoms. Were old charts reviewed? @ -No Differential Diagnosis? @ -Differential Ankle Pain/Injury: Fracture, sprain, contusion, this is not meant to be an all-inclusive list. EKG interpreted by me (3pts min.)? @ -Not obtained X-rays interpreted by me (1pt min.)? @ -X-ray of the right ankle obtained. My interpretation identifies no acute fractures. CT interpreted by me (1pt min.)? @ -Not obtained U/S interpreted by me (1pt. min.)? @ -Not obtained What testing was considered but not performed? (CT, X-rays, U/S, labs)? Why? @ -None What meds were considered but not given? Why? @ -None Did you discuss the management of the patient with other professionals? @ -No Did you reconcile home meds? @ -No Was smoking cessation discussed for >3mins.? @ -No Was critical care preformed (if so, how long)? @ -No Were there social determinants of health that impacted care today? How? (Homelessness, low income, unemployed, alcoholism, drug addiction, transportation, low edu. Level, literacy, decrease access to med. care, detention, rehab)? @ -No Was there de-escalation of care discussed even if they declined? (Discuss DNR or withdrawal of care, Hospice)? @ -No What co-morbidities impacted this encounter? (DM, HTN, Smoking, COPD, CAD, Cancer, CVA, Hep., AIDS, mental health diagnosis, sleep apnea, morbid obesity)? @ -None Was patient admitted / discharged? @ -Discharged. X-ray of the right ankle obtained revealing no acute findings. Tylenol #3 administered in the emergency department for pain control. She was given a Velcro stirrup splint for support. Otherwise advised Tylenol as needed for additional pain relief and applying ice for 15-20 minutes every 2-3 hours and keeping the ankle elevated. Undiagnosed new problem with uncertain prognosis? @ -None Drug Therapy requiring intensive monitoring for toxicity (Heparin, Nitro, Insulin, Cardizem)? @ -None Were any procedures done? @ -None Diagnosis/symptom? @ -Right ankle sprain Acute, or Chronic, or Acute on Chronic? @ -Acute Uncomplicated (without systemic symptoms) or Complicated (systemic symptoms)? @ -Uncomplicated Side effects of treatment? @ -None Exacerbation, Progression, or Severe Exacerbation] @ -Not applicable Poses a threat to life or bodily function? @ -No Return precautions reviewed in depth, the patient is instructed to return to the emergency department with any new, worsening, or concerning symptoms. Patient verbalized understanding. This case was discussed in detail with the attending ED physician, Dr. Contreras. Presentation, findings, and treatment plan discussed in detail as well. - Radiology Data Radiology results: report reviewed, image reviewed Disposition Clinical Impression: Right ankle sprain Disposition: HOME SELF-CARE Instructions (If sedation given, give patient instructions): Ankle Sprain (ED) Additional Instructions: Return to the emergency department with any new, worsening, or concerning symptoms. Take Tylenol as needed for pain. Apply ice for 15-20 minutes every 2-3 hours and keep ankle elevated. Use the ankle brace as needed. Follow up with your primary care provider in 1-2 days. Is patient prescribed a controlled substance at d/c from ED?: No Referrals: Nelson Arnett DO [Primary Care Provider] - 1-2 days
--- NOTE | 2022-08-29 14:19 | XR ---
EXAMINATION TYPE: XR ankle complete RT DATE OF EXAM: 08/29/2022 CLINICAL HISTORY: Injury with pain TECHNIQUE: Frontal, lateral and oblique images of the right ankle are obtained. COMPARISON: None. FINDINGS: There is no acute fracture/dislocation evident in the right ankle. The ankle mortise appe ars within normal limits. The overlying soft tissue appears unremarkable. IMPRESSION: There is no acute fracture or dislocation in the right ankle.
[2022-08-29] MEDS ORDERED: ACET/COD 300 MG/30 MG STARTER PACK 6 TAB BTL PO STA (14:27)
[2022-08-29 15:05] VITALS: BP 109/65; PULSE 69; RESP 16; TEMP 98
== END 2022-08-29 15:11 | disposition home or self-care (01) ==
LOC: EC 13:18
DX: S93.401A Sprain of unspecified ligament of right ankle, initial encounter (principal); E07.9 Disorder of thyroid, unspecified; F41.9 Anxiety disorder, unspecified; F32.A Depression, unspecified; Z87.891 Personal history of nicotine dependence; F12.90 Cannabis use, unspecified, uncomplicated; Z88.0 Allergy status to penicillin; Z91.040 Latex allergy status; Z88.6 Allergy status to analgesic agent; Z79.890 Hormone replacement therapy; Z79.899 Other long term (current) drug therapy; W18.49XA Other slipping, tripping and stumbling without falling, initial encounter; Y99.0 Civilian activity done for income or pay
CPT/HCPCS: 99283

== ENCOUNTER → 2022-09-09 | Outpatient (CLI) | payer OTHER ==
--- NOTE | 2022-09-09 15:06 | XR ---
EXAMINATION TYPE: XR ankle complete RT DATE OF EXAM: 09/09/2022 COMPARISON: NONE HISTORY: Pain TECHNIQUE: Frontal, lateral and oblique images of the right ankle are obtained. COMPARISON: None. FINDINGS: There is no acute fracture/dislocation evident. The joint spaces appear within normal mcgee its. Lateral soft tissue swelling noted. IMPRESSION: There is no acute fracture or dislocation seen.
== END | disposition home or self-care (01) ==
LOC: RADXRMAIN 14:29
PROVIDERS: ATTEND Emergency Medicine
DX: S93.401D Sprain of unspecified ligament of right ankle, subsequent encounter (principal)

== ENCOUNTER 2023-03-20 20:07 | Emergency (ER) | payer OTHER ==
[2023-03-20] MEDS ORDERED: ACETAMINOPHEN TAB 500 MG TAB PO STA (20:44)
--- NOTE | 2023-03-20 21:24 | ED ---
Fever HPI - General Chief Complaint: Fever Stated Complaint: Fever Time Seen by Provider: 03/20/23 20:34 Source: patient, RN notes reviewed Mode of arrival: ambulatory Limitations: no limitations - History of Present Illness Initial Comments: This is a 32 year old female who presents to the emergency department for a fever. Patient reports fevers, chills, bodyaches, and congestion starting earlier today. She has a minor dry cough, but denies any chest pain or shortness breath. She has been around her son who has had similar symptoms for about 3 days at this point. She took Tylenol around noon earlier today but has not had anything since. MD Complaint: fever - Related Data Home Medications Medication Instructions Recorded Confirmed Levothyroxine Sodium [Synthroid] 100 mcg PO DAILY 12/22/21 01/15/22 Vit No.179/Iron/Folic 1 each PO DAILY 12/22/21 01/15/22 [ Tablet] Previous Rx's Medication Instructions Recorded oxyCODONE HCL [OxyIR] 5 mg PO Q4HR PRN #18 tab 01/17/22 Allergies Allergy/AdvReac Type Severity Reaction Status Date / Time latex Allergy Rash/Hives Verified 03/20/23 20:21 Penicillins Allergy Anaphylaxis, Verified 03/20/23 20:21 hives all over body ibuprofen AdvReac Nausea Verified 03/20/23 20:21 Review of Systems ROS Statement: Those systems with pertinent positive or pertinent negative responses have been documented in the HPI. ROS Other: All systems not noted in ROS Statement are negative. Past Medical History Past Medical History: Thyroid Disorder Additional Past Medical History / Comment(s): gestational diabetes, depression History of Any Multi-Drug Resistant Organisms: None Reported Past Surgical History: Section Past Anesthesia/Blood Transfusion Reactions: Postoperative Nausea & Vomiting (PONV) Additional Past Anesthesia/Blood Transfusion Reaction / Comment(s): Denies recieving a blood transfusion in the past Past Psychological History: Anxiety, Depression, PTSD Smoking Status: Former smoker Past Alcohol Use History: Rare Past Drug Use History: Marijuana - Past Family History Mother Family Medical History: Thyroid Disorder Father History Unknown: Yes Son(s) Family Medical History: No Reported History General Exam Limitations: no limitations General appearance: alert, in no apparent distress Head exam: Present: atraumatic, normocephalic, normal inspection Respiratory exam: Present: normal lung sounds bilaterally. Absent: respiratory distress, wheezes, rales, rhonchi, stridor Cardiovascular Exam: Present: regular rate, normal rhythm, normal heart sounds. Absent: systolic murmur, diastolic murmur, rubs, gallop, clicks Neurological exam: Present: alert, oriented X3, CN II-XII intact Psychiatric exam: Present: normal affect, normal mood Skin exam: Present: warm, dry, intact, normal color. Absent: rash Course Vital Signs 03/20/23 03/20/23 03/20/23 20:17 21:36 22:18 Temperature 104.0 F H 100.2 F H Pulse Rate 129 H 100 Respiratory 16 20 Rate Blood Pressure 107/68 92/62 O2 Sat by Pulse 97 96 Oximetry Medical Decision Making - Medical Decision Making This is a 32-year-old female who presents to the emergency department for a fever. Was pt. sent in by a medical professional or institution? @ -No Did you speak to anyone other than the patient for history? @ -No Did you review nursing and triage notes? @ -Yes, and I agree, it is accurate with regards to the patient's symptoms. Were old charts reviewed? @ -No Differential Diagnosis? @ -Differential Fever: Pneumonia, viral URI, endocarditis, myocarditis, pericarditis, otitis, sinusitis, peritonsillar Abscess, retropharyngeal Abscess, epiglottitis, peritonitis, appendicitis, Luz cystitis, diverticulitis, hepatitis, colitis, UTI, PID, TOA, pyelonephritis, prostatitis, epididymitis, meningitis, encephalitis, pulmonary embolism, CVA, thyroid storm, pancreatitis, adrenal crisis, cavernous sinus thrombosis, this is not meant to be an all-inclusive list. EKG interpreted by me (3pts min.)? @ -Not obtained X-rays interpreted by me (1pt min.)? @ -Not obtained CT interpreted by me (1pt min.)? @ -Not obtained U/S interpreted by me (1pt. min.)? @ -Not obtained What testing was considered but not performed? (CT, X-rays, U/S, labs)? Why? @ -None What meds were considered but not given? Why? @ -None Did you discuss the management of the patient with other professionals? @ -No Did you reconcile home meds? @ -No Was smoking cessation discussed for >3mins.? @ -No Was critical care preformed (if so, how long)? @ -No Were there social determinants of health that impacted care today? How? (Homelessness, low income, unemployed, alcoholism, drug addiction, transportation, low edu. Level, literacy, decrease access to med. care, [facility], rehab)? @ -No Was there de-escalation of care discussed even if they declined? (Discuss DNR or withdrawal of care, Hospice)? @ -No What co-morbidities impacted this encounter? (DM, HTN, Smoking, COPD, CAD, Cancer, CVA, Hep., AIDS, mental health diagnosis, sleep apnea, morbid obesity)? @ -None Was patient admitted / discharged? @ -Discharged. Patient was febrile on arrival and given 1g of Tylenol. Covid, influenza, and RSV testing were negative. Advised that this is likely related to a viral process. We discussed continuing with supportive care, such as taking Tylenol as needed for any additional fevers and body aches. Patient otherwise discharged home in stable condition. Undiagnosed new problem with uncertain prognosis? @ -None Drug Therapy requiring intensive monitoring for toxicity (Heparin, Nitro, Insulin, Cardizem)? @ -None Were any procedures done? @ -None Diagnosis/symptom? @ -Fever, viral illness Acute, or Chronic, or Acute on Chronic? @ -Acute Uncomplicated (without systemic symptoms) or Complicated (systemic symptoms)? @ -Uncomplicated Side effects of treatment? @ -None Exacerbation, Progression, or Severe Exacerbation] @ -Not applicable Poses a threat to life or bodily function? @ -No Return precautions reviewed in depth, the patient is instructed to return to the emergency department with any new, worsening, or concerning symptoms. Patient verbalized understanding. This case was discussed in detail with the attending ED physician, Dr. Coreas. Presentation, findings, and treatment plan discussed in detail as well. - Lab Data Lab Results 03/20/23 Range/Units 20:37 Influenza Type A (PCR) Not Detected (Not Detectd) Influenza Type B (PCR) Not Detected (Not Detectd) RSV (PCR) Not Detected (Not Detectd) SARS-CoV-2 (PCR) Not Detected (Not Detectd) Disposition Clinical Impression: Viral URI Disposition: HOME SELF-CARE Instructions (If sedation given, give patient instructions): Fever in Adults (ED) Additional Instructions: Return to the emergency department with any new, worsening, or concerning symptoms. Continue to take Tylenol as needed for fevers and body aches. Follow up with your primary care provider in 1-2 days. Is patient prescribed a controlled substance at d/c from ED?: No Referrals: Nelson Arnett DO [Primary Care Provider] - 1-2 days
[2023-03-20 21:48] VITALS: TEMP 100.2
[2023-03-20 22:41] VITALS: BP 92/62; PULSE 100; RESP 20
== END 2023-03-20 22:19 | disposition home or self-care (01) ==
LOC: EC 20:07
DX: J06.9 Acute upper respiratory infection, unspecified (principal); E07.9 Disorder of thyroid, unspecified; Z86.59 Personal history of other mental and behavioral disorders; F12.90 Cannabis use, unspecified, uncomplicated; Z87.891 Personal history of nicotine dependence; Z91.040 Latex allergy status; Z20.822 Contact with and (suspected) exposure to COVID-19; Z88.0 Allergy status to penicillin; Z88.6 Allergy status to analgesic agent
CPT/HCPCS: 87636; 99283

== ENCOUNTER 2024-02-17 04:48 | Emergency (ER) | payer OTHER ==
--- NOTE | 2024-02-17 05:09 | ED ---
General Adult HPI - General Chief complaint: Extremity Injury, Upper Stated complaint: [facility] Right hand middle finger injury Time Seen by Provider: 02/17/24 04:50 Source: patient, RN notes reviewed, old records reviewed Mode of arrival: ambulatory Limitations: no limitations - History of Present Illness Initial comments: 33-year-old female with right middle finger injury while at work. Patient got her finger pinched in a clamp. She is able to move the finger and there was no laceration or bleeding that she noted. No other injury. - Related Data Home Medications Medication Instructions Recorded Confirmed Levothyroxine Sodium [Synthroid] 100 mcg PO DAILY 12/22/21 01/15/22 Vit No.179/Iron/Folic 1 each PO DAILY 12/22/21 01/15/22 [ Tablet] Previous Rx's Medication Instructions Recorded oxyCODONE HCL [OxyIR] 5 mg PO Q4HR PRN #18 tab 01/17/22 Allergies Allergy/AdvReac Type Severity Reaction Status Date / Time latex Allergy Rash/Hives Verified 02/17/24 04:55 Penicillins Allergy Anaphylaxis, Verified 02/17/24 04:55 hives all over body azithromycin AdvReac Unknown Verified 02/17/24 04:55 ibuprofen AdvReac Nausea Verified 02/17/24 04:55 Review of Systems ROS Statement: Those systems with pertinent positive or pertinent negative responses have been documented in the HPI. ROS Other: All systems not noted in ROS Statement are negative. Past Medical History Past Medical History: Thyroid Disorder Additional Past Medical History / Comment(s): gestational diabetes, depression, headache History of Any Multi-Drug Resistant Organisms: None Reported Past Surgical History: Section Past Anesthesia/Blood Transfusion Reactions: Postoperative Nausea & Vomiting (PONV) Additional Past Anesthesia/Blood Transfusion Reaction / Comment(s): Denies recieving a blood transfusion in the past Past Psychological History: Anxiety, Depression, PTSD Smoking Status: Former smoker, Vaper Past Alcohol Use History: Rare Past Drug Use History: Marijuana - Past Family History Mother Family Medical History: Thyroid Disorder Father History Unknown: Yes Son(s) Family Medical History: No Reported History General Exam Limitations: no limitations General appearance: alert, in no apparent distress Head exam: Present: atraumatic, normocephalic Eye exam: Present: normal appearance, PERRL ENT exam: Present: normal exam Neck exam: Present: normal inspection. Absent: tenderness, meningismus Respiratory exam: Present: normal lung sounds bilaterally. Absent: respiratory distress Cardiovascular Exam: Present: regular rate, normal rhythm Extremities exam: Present: other (Right hand: There is pain with range of motion of the third digit on the right no laceration, no significant soft tissue swelling, no gross deformity) Course Vital Signs 02/17/24 02/17/24 04:53 06:10 Temperature 97.8 F 98.0 F Pulse Rate 75 85 Respiratory 18 16 Rate Blood Pressure 123/85 121/85 O2 Sat by Pulse 95 98 Oximetry Medical Decision Making - Medical Decision Making Was pt. sent in by a medical professional or institution (, JESSICA, CERAMIC CAPACITOR PROCESSOR, urgent care, hospital, or snf...) When possible be specific @ -No Did you speak to anyone other than the patient for history (EMS, parent, family, police, friend...)? What history was obtained from this source @ -No Did you review nursing and triage notes (agree or disagree)? Why? @ -I reviewed and agree with nursing and triage notes Were old charts reviewed (outside hosp., previous admission, EMS record, old EKG, old radiological studies, urgent care reports/EKG's, snf records)? Report findings @ -No old charts were reviewed Differential Diagnosis: Fracture dislocation of the third digit, crush injury, laceration EKG interpreted by me (3pts min.). @ -As above X-rays interpreted by me (1pt min.). @ -X-ray negative for displaced fracture or dislocation of the third digit right hand CT interpreted by me (1pt min.). @ -None done U/S interpreted by me (1pt. min.). @ -None done What testing was considered but not performed or refused? (CT, X-rays, U/S, labs)? Why? @ -None What meds were considered but not given or refused? Why? @ -None Did you discuss the management of the patient with other professionals (professionals i.e. JESSICA Balderas, CER[employer] CAPACITOR PROCESSOR, lab, RT, psych nurse, social science manager, professor of religion, teacher, resident medical officer, case picker)? Give summary @ -No Was smoking cessation discussed for >3mins.? @ -No Was critical care preformed (if so, how long)? @ -No Were there social determinants of health that impacted care today? How? (Homelessness, low income, unemployed, alcoholism, drug addiction, transportation, low edu. Level, literacy, decrease access to med. care, detention, rehab)? @ -No Was there de-escalation of care discussed even if they declined (Discuss DNR or withdrawal of care, Hospice)? DNR status @ -No What co-morbidities impacted this encounter? (DM, HTN, Smoking, COPD, CAD, Cancer, CVA, ARF, Chemo, Hep., AIDS, mental health diagnosis, sleep apnea, morbid obesity)? @ -None Was patient admitted / discharged? Hospital course, mention meds given and route, prescriptions, significant lab abnormalities, going to OR and other pertinent info. @ -[33-year-old female with injury to the third digit right hand. No significa nt external signs of trauma, there is pain with range of motion. X-ray is negative for fracture or dislocation. Patient is stable for discharge. Undiagnosed new problem with uncertain prognosis? @ -No Drug Therapy requiring intensive monitoring for toxicity (Heparin, Nitro, Insulin, Cardizem)? @ -No Were any procedures done? @ -No Diagnosis/symptom? @Finger contusion, sprain Acute, or Chronic, or Acute on Chronic? @Acute Uncomplicated (without systemic symptoms) or Complicated (systemic symptoms)? @ -Default Side effects of treatment? @ -No Exacerbation, Progression, or Severe Exacerbation? @ -No Poses a threat to life or bodily function? How? (Chest pain, [place], [place], pneumonia, PE, COPD, DKA, ARF, appy, cholecystitis, CVA, Diverticulitis, Homicidal, Suicidal, threat to staff... and all critical care pts) @ -No Disposition Clinical Impression: Finger sprain, Crushing injury of hand Disposition: HOME SELF-CARE Condition: Good Instructions (If sedation given, give patient instructions): Finger Sprain (ED) Is patient prescribed a controlled substance at d/c from ED?: No Referrals: Thomas Enamorado MD [Primary Care Provider] - 1-2 days Time of Disposition: 05:30
[2024-02-17 06:12] VITALS: BP 121/85; PULSE 85; RESP 16; TEMP 98
--- NOTE | 2024-02-17 06:34 | XR ---
EXAM: XR Right Fingers, 2 or More Views CLINICAL HISTORY: right middle finger injury at work TECHNIQUE: Frontal, lateral and oblique views of the fingers of the right hand. 4 images COMPARISON: No relevant prior studies available. FINDINGS: Bones/joints: No fracture or dislocation. Soft tissues: Unremarkable. No radiopaque foreign body. IMPRESSION: No fracture
== END 2024-02-17 06:20 | disposition home or self-care (01) ==
LOC: EC 04:48
DX: S63.612A Unspecified sprain of right middle finger, initial encounter (principal); F17.290 Nicotine dependence, other tobacco product, uncomplicated; Z88.0 Allergy status to penicillin; Z88.1 Allergy status to other antibiotic agents; Z88.6 Allergy status to analgesic agent; Z91.040 Latex allergy status; W23.0XXA Caught, crushed, jammed, or pinched between moving objects, initial encounter; Y99.0 Civilian activity done for income or pay
CPT/HCPCS: 99283